=== PATIENT | male | born 1935 | race Caucasian/White ===

== ENCOUNTER 2016-07-16 09:53 | Outpatient (CLI) | payer MEDICARE, OTHER ==
[~2016-07-16] VITALS: Ht 180.3 cm; Wt 130.8 kg
[2016-07-16] MEDS ORDERED: HYDR500C2 PO (10:31)
[2016-07-16] MEDS ORDERED: VALS320T14 PO (13:48)
[2016-07-16] MEDS ORDERED: UBID100C17 PO (13:48)
[2016-07-16] MEDS ORDERED: DILT300C51 PO (13:48)
[2016-07-16] MEDS ORDERED: MAGN400T6 PO (13:48)
[2016-07-16] MEDS ORDERED: SODI325T PO (13:48)
[2016-07-16] MEDS ORDERED: INSU100I13 SQ ×2 (13:48)
[2016-07-16] MEDS ORDERED: TRIA1TAB5 PO (13:48)
[2016-07-16] MEDS ORDERED: ASPI-586 PO (13:48)
[2016-07-16] MEDS ORDERED: FERR324T7 PO (13:48)
[2016-07-16] MEDS ORDERED: FURO20TA4 PO (13:48)
[2016-07-16] MEDS ORDERED: LORA10TA7 PO (13:48)
[2016-07-16] MEDS ORDERED: OMEG1CAP58 PO (13:48)
[2016-07-16] MEDS ORDERED: HYDR-3820 PO (13:48)
[2016-07-16] MEDS ORDERED: CHOL500044 PO (13:48)
[2016-07-16] MEDS ORDERED: METH750T3 PO (13:48)
[2016-07-16] MEDS ORDERED: CYAN250010 PO (13:48)
[2016-07-16] MEDS ORDERED: RANI-515 PO (13:48)
[2016-07-16] MEDS ORDERED: IPRA4AER IH (13:55)
[2016-07-16] MEDS ORDERED: POLY119P5 PO (13:55)
[2016-07-16] MEDS ORDERED: ALBU90AE IH (13:55)
[2016-07-16] MEDS ORDERED: AMLO10TA2 PO (13:55)
[2016-07-16] MEDS ORDERED: LEVO75TA6 PO (13:55)
[2016-07-16] MEDS ORDERED: PRAZ5CAP2 PO (13:55)
[2016-07-16] MEDS ORDERED: TRAZ-28 PO (13:55)
== END 2016-07-16 10:30 | disposition home or self-care (01) ==
LOC: PREOP 09:53
PROVIDERS: ATTEND Orthopaedic Surgery Orthopaedic Surgery of the Spine
DX: Z01.818 Encounter for other preprocedural examination (principal); Z22.322 Carrier or suspected carrier of Methicillin resistant Staphylococcus aureus; Z11.2 Encounter for screening for other bacterial diseases; M48.06 Spinal stenosis, lumbar region
CPT/HCPCS: 87081

== ENCOUNTER 2016-07-23 05:46 | Inpatient (IN) | payer MEDICARE, OTHER ==
[~2016-07-23] VITALS: Ht 180.3 cm; Wt 130.8 kg
[~2016-07-23 05:46] MED LIST: ALBU90AE IH; AMLO10TA2 PO; ASPI-586 PO; CHOL500044 PO; CYAN250010 PO; DILT300C51 PO; FERR324T7 PO; FURO20TA4 PO; HYDR-3820 PO; HYDR500C2 PO; INSU100I13 SQ; IPRA4AER IH; LEVO75TA6 PO; LORA10TA7 PO; MAGN400T6 PO; METH750T3 PO; OMEG1CAP58 PO; POLY119P5 PO; PRAZ5CAP2 PO; RANI-515 PO; SODI325T PO; TRAZ-28 PO; TRIA1TAB5 PO; UBID100C17 PO; VALS320T14 PO
--- OUTSIDE RECORDS SUMMARY | 2016-07-23 05:51 | XMS REPORT | Continuity of Care Document ---
Author Author [facility] Organization [facility] Address Unknown Phone Unavailable Care Team Providers Care Physics Instructor Name Role Phone NO, LOCAL PHYSICIAN PCP Unavailable Insurance Providers Payer Name Policy Number Subscriber Name Relationship [employer] [id number] Cristina Crandall 18 Self / Same As Patient For Life [id number] Cristina Crandall 18 Self / Same As Patient Advance Directives Directive Response Recorded Date/Time Advance Directives Yes 07/16/16 10:03am Health Care Power of Director Plans Yes 07/16/16 10:03am Organ Donor No 07/16/16 10:03am Resuscitation Status Full Code 07/16/16 10:03am Problems No problem information available. Medications Current Home Medications Medication Dose Units Route Directions Days/Qty Instructions Start Date Hydroxyurea 500 Mg 500 Mg Oral Bedtime 07/16/16 Triamterene/Hydrochlorothiazid 1 Each 0.5 Tab Oral Daily 07/16/16 Ranitidine Hcl (Ranitidine) 150 Mg 150 Mg Oral Daily@1200, & Hs Valsartan 320 Mg 320 Mg Oral Daily 07/16/16 Magnesium Oxide 400 Mg 400 Mg Oral Daily@1200 07/16/16 Loratadine 10 Mg 10 Mg Oral Bedtime 07/16/16 Diltiazem Hcl 300 Mg 300 Mg Oral Daily 07/16/16 Methocarbamol 750 Mg 750 Mg Oral Twice A Day 07/16/16 Hydrocodone/Acetaminophen 1 Each 1 Each Oral Four Times Daily Aspirin Unknown Strength 81 Mg Oral Daily 07/16/16 Grand [place]-3 Fatty Acids/Fish Oil 1 Each 2,000 Mg Oral Twice A Day take 2 (1 ,000MG) TABS 07/16/16 Ferrous Gluconate 324 Mg 324 Mg Oral Twice A Day 07/16/16 Ubidecarenone Unknown Strength 200 Mg Oral Daily@1200 07/16/16 Cholecalciferol (Vitamin D3) 5,000 Unit 5,000 Unit Oral Daily@1200 07/16/16 Furosemide 20 Mg 20 Mg Oral Daily 07/16/16 Cyanocobalamin (Vitamin B-12) Unknown Strength 1,000 Mcg Oral Daily@1200 07/16/16 Sodium Bicarbonate 325 Mg 325 Mg Oral Daily@1200 07/16/16 Insuln Asp Prt/Insulin Aspart 300 Units/3 Ml 102 Units Sub-Q Daily 07/16/16 Insuln Asp Prt/Insulin Aspart 300 Units/3 Ml 105 Units Sub-Q Bedtime 07/16/16 Albuterol/Ipratropium 4 Gm 1 Puff Inhalation Three Times A Day 07/16 Polyethylene Glycol 3350 119 Gm 17 Gm Oral Every Other Day 07/16/16 Amlodipine Besylate 10 Mg 5 Mg Oral Daily TAKE 1/2 OF 10MG TAB Levothyroxine Sodium 75 Mcg 75 Mcg Oral Daily 07/16/16 Trazodone Hcl 50 Mg 50 Mg Oral Bedtime 07/16/16 Albuterol Sulfate 90 Mcg 1-2 Puff Inhalation Four Times Daily as needed for Shortness Of Breath 07/16/16 Prazosin Hcl 5 Mg 5 Mg Oral Bedtime 07/16/16 Social History Social History Problem Response Recorded Date/Time Alcohol Use Occasionally Uses 07/16/2016 10:06am Recreational Drug Use No 07/16/2016 10:06am Recent Foreign Travel No 07/16/2016 9:58am Recent Infectious Disease Exposure No 07/16/2016 9:58am Smoking Status Former Smoker 07/16/2016 10:02am Recent Hopitalizations No 07/16/2016 10:06am Query Response Start Date Stop Date Smoking Status Former Smoker Hospital Discharge Instructions No hospital discharge instructions. Plan of Care Discharge Date 07/16/16 10:30am Prescriptions See Medication Section Functional Status No functional status results. Allergies, Adverse Reactions, Alerts Allergen Type Severity Reaction Status Last Updated clavulanic acid ([id number]) Allergy Unknown NAUSEA Active 07/16/16 amoxicillin ([id number]) Allergy Unknown NAUSEA Active 07/16/16 Immunizations No immunization records. Vital Signs Acute Vital Signs Vital Response Date/Time Pulse Rate (adult) 64 bpm (60 - 90) 07/16/2016 10:02am O2 Sat by Pulse Oximetry 96 % (88 - 100) 07/16/2016 10:02am Pain Numeric Pain Scale 4 07/16/2016 10:02am Height (Feet) 5 feet 07/16/2016 9:59am Height (Inches) 11.00 inches 07/16/2016 9:59am Height (Calculated Centimeters) 180.538856 cm 07/16/2016 9:59am Weight (Pounds) 288 pounds 07/16/2016 9:59am Weight (Ounces) 5.0 oz 07/16/2016 9:59am Weight (Calculated Grams) 926475.35 gm 07/16/2016 9:59am Weight (Calculated Kilograms) 130.426682 kilograms 07/16/2016 9:59am Calculated BMI 40.2 07/16/2016 9:59am Results No known relevant diagnostic tests, laboratory data and/or discharge summary. Procedures No known history of procedures. Encounters Encounter Location Arrival/Admit Date Discharge/Depart Date Attending Provider Departed Clinic [facility] 07/16/16 9:53am 07/16/16 10: 30am DANIEL GUEVARA MD
[2016-07-23 06:30] VITALS: BP 160/72
[2016-07-23] MEDS ORDERED: FAMOTIDINE 20MG/2ML IV (PEPCID) IV ONE (06:30)
[2016-07-23] MEDS ORDERED: fentaNYL INJECTION 100 MCG/2 ML AMP IV ONE (06:30)
[2016-07-23] MEDS ORDERED: ceFAZolin 2 GM/NS 50 ML IV ONE (06:45)
[2016-07-23] MEDS ORDERED: GENTAMICIN 40 MG/ML 2 ML INJ SDV ONE (06:47)
[2016-07-23] MEDS ORDERED: VANCOMYCIN 1000 MG/VIAL ONE (06:47)
[2016-07-23] MEDS: LACTATED RINGERS 1,000 ML IV PRN ×3 (06:50→10:02)
[2016-07-23] MEDS ORDERED: proPOfol 200 MG/20 ML (DIPRIVAN) VIAL IV ONE (06:56)
[2016-07-23] MEDS ORDERED: LACTATED RINGERS 1,000 ML IV ONE ×3 (06:56→10:46)
[2016-07-23] MEDS ORDERED: SUCCINYLCHOLINE INJ 100 MG/5 ML SYR ONE (06:56)
[2016-07-23] MEDS ORDERED: ROCURONIUM 50 MG/5 ML (ZEMURON) VIAL IV ONE (06:56)
[2016-07-23] MEDS ORDERED: SEVOFLURANE (ULTANE) 15 ML INHAL SOLN ONE (06:56)
[2016-07-23] MEDS ORDERED: ONDANSETRON 4 MG/2 ML (SDV) Z0FRAN ONE (06:56)
[2016-07-23] MEDS ORDERED: fentaNYL INJECTION 250 MCG/5 ML AMP ONE (06:56)
[2016-07-23] MEDS ORDERED: LIDOCAINE PF 2% 10 ML (XYLOCAINE) AMP ONE (06:56)
[2016-07-23] MEDS ORDERED: DEXMEDETOMIDINE PRE MIX IV ONE (07:00)
[2016-07-23] MEDS ORDERED: CLINDAMYCIN 900 MG/50 ML IVPB 50 ML IV ONE ×2 (07:09→07:15)
[2016-07-23] MEDS ORDERED: ONDANSETRON 4 MG/2 ML (SDV) Z0FRAN IV PRN (07:15)
[2016-07-23] MEDS ORDERED: MILK OF MAGNESIA 400 MG/5 ML 30 ML UDC PO PRN (07:15)
[2016-07-23] MEDS ORDERED: PROMETHAZINE 25 MG (PHENERGAN) TAB PO PRN (07:15)
[2016-07-23] MEDS ORDERED: PROMETHAZINE 12.5 MG (PHENERGAN) SUPP PR PRN (07:15)
[2016-07-23] MEDS ORDERED: ACETAMINOPHEN 325 MG TABLET/CAPLET (TYLENOL) PO PRN (07:15)
[2016-07-23] MEDS ORDERED: BISACODYL 5 MG (DULCOLAX) TABLET PO PRN (07:15)
[2016-07-23] MEDS ORDERED: GLYCOPYRROLATE 0.2 MG/ML (ROBINUL) 2 ML VIAL ONE (09:33)
[2016-07-23] MEDS ORDERED: NEOSTIGMINE (BLOXIVERZ ) 1 MG/1ML 10 ML VIAL ONE (09:33)
[2016-07-23] MEDS ORDERED: BACITRACIN OINTMENT 28 GM TUBE TOP SCH (10:00)
--- NOTE | 2016-07-23 10:00 | Progress Note-Post Operative ---
Post-Operative Progess Note Backfiller Alonso Mcgrath, BEATRIZ Pre-Operative Diagnosis Lumbar Stenosis Post-Operative Diagnosis Same Post-Op Procedure Note Date of Procedure: Jul 23, 2016 Name of Procedure: L3-4 AL/P, with L4-5 PSF, instrumentation and RIght L3-4 facectomy Procedure Note/Findings Stenosis Anesthesia Type GETA Estimated blood loss (mL): 150 DANIEL GUEVARA MD Jul 23, 2016 9:59 am
[2016-07-23] MEDS ORDERED: MEPERIDINE (DEMEROL) INJ 50 MG/ML IVP PRN (10:30)
[2016-07-23] MEDS ORDERED: morphine INJ 10 MG/ML 1ML (SYR OR VIAL) IVP PRN (10:30)
[2016-07-23] MEDS ORDERED: ONDANSETRON 4 MG/2 ML (SDV) Z0FRAN IVP PRN (10:30)
[2016-07-23] MEDS ORDERED: HYDROmorphone (DILAUDID) 2 MG/ML VIAL IVP PRN (10:30)
[2016-07-23 12:00] VITALS: BP 126/75
--- NOTE | 2016-07-23 12:05 | Diagnostic Imaging Report ---
Fluoroscopy. INDICATION: Spinal fusion. Fluoroscopic assistance was provided for Dr. Travis Lewis during his spinal fusion procedure. 35.3 seconds fluoroscopy time was utilized. AP and lateral spot films of the lower lumbar spine were received from the OR. There are bilateral pedicle screws in place at L3, L4, L5, and S1. There are also interbody devices at L3-L4 and L5-S1. The orthopedic hardware appears to be in good position. IMPRESSION: Stable postoperative lumbar spine. Dictated by: Dictated on workstation # [id number]
--- NOTE | 2016-07-23 12:15 | OPERATIVE REPORT ---
PROCEDURE PHYSICIAN: DANIEL LEWIS DATE OF PROCEDURE: 07/23/2016 PREOPERATIVE DIAGNOSES: 1. Lumbar stenosis. 2. Neural canal and neural foraminal. 3. Lumbar degenerative disease. 4. Lumbar radiculopathy. 5. Previous lumbar fusion. POSTOPERATIVE DIAGNOSES: 1. Lumbar stenosis. 2. Neural canal and neural foraminal. 3. Lumbar degenerative disease. 4. Lumbar radiculopathy. 5. Previous lumbar fusion. PROCEDURE PERFORMED: 1. L3-L4 anterolateral transpsoas interbody fusion via TLIF approach. 2. L3-L4 interbody cage instrumentation without intraorbital internal fixation. 3. L3-L4 posterior spinal fusion. 4. L4-L5 posterior spinal fusion. 5. Removal of nonsegmental posterior spinal instrumentation. 6. L3-S1 posterior segmental pedicle screw instrumentation. 7. Right L3-L4 facetectomy and foraminotomy. 8. Autograph for spine surgery, local. 9. Allograft for spine surgery, morselized. DATE AND TIME OF SURGERY: Please see anesthesia record. SURGEON: Dr. Lewis. SOFTWARE APPLICATIONS ARCHITECT: CRISTOBAL Stafford. ROLE OF EMERGENCY ROOM CLERK: Aid in retraction of the procedure, suction around neural elements, aid in implantation, instrumentation and wound closure IMPLANTS USED: 1. Medtronic Legacy posterior spinal instrumentation. 2. Medtronic Clydesdale peek cage. 3. Medtronic infuse and Orthoblend bone graft. ANESTHESIA: General endotracheal. ESTIMATED BLOOD LOSS: 150 mL. IV FLUIDS: Please see anesthesia record. ANTIBIOTICS: Ancef. COMPLICATIONS: None. INDICATION FOR PROCEDURE: Mr. Crandall, 81-year-old male with progressively intolerable severe right leg pain, previous fusion breakdown above, failure to conservative therapy, desires operative treatment. DESCRIPTION OF PROCEDURE: The patient was taken to the preoperative holding area and brought back to the operating suite. After adequate induction of general anesthetic, preoperative antibiotics, he was turned prone lateral decubitus position, left side up. Standard transpsoas approach with neural monitoring was carried out to the 3 to 4 level without difficulty. Once the appropriate level was confirmed, shadow line retractor was placed. After the 3 to 4 disk was prepped, trial spacers utilized and a 14 tall, 22 wide, 55 long cage filled with infuse and allograft bone was impacted in position with good fit achieved. Retractor was removed, hemostasis assured, patient was turned prone on Herminio table. After closing the wound, careful padding to all extremities, sterilely prep and drape of the posterior lumbar spine. Previous incision was opened and carried slightly proximally full exposure of the 3 to 4 and 4 to 5 levels. Previous hardware was removed and a complete facetectomy, foraminotomy 3 to 4 on the right, decompression 3 to 4 level and then bilateral L3 and 4 screws were placed. Checked on imaging and with neural monitoring and then L3 to S1 instrumentation was placed. Final tightening was performed. High speed bur was used to corticate the posterior elements at 3 to 4 and 4 to 5 and then a combination of autograft and allograft bone was packed in the posterior lateral gutter for the fusion portion of the procedure. The wound was irrigated, closed in layers. The patient transferred to the recovery room in stable condition having tolerated the procedure well with stable spinal monitoring. Job ID: [id number] Dictated Date: 07/23/2016 10:04:58 Cable Installer Repairer Helper Date: 07/23/2016 11:50:32 / merlene
[2016-07-23] MEDS: HYDROcodone/APAP 5 MG/325 MG (LORTAB) TAB PO PRN ×2 (12:18→20:37)
--- NOTE | 2016-07-23 12:45 | Consultation-Hospitalist ---
HPI History of Present Illness: HPI/Chief Complaint CC: Lumbar stenosis surgery: L3-4 AL/P, with L4-5 PSF, instrumentation and RIght L3-[address] Lewis HPI: This is an 81yoWM clinic patient of [facility] w/h/o HTN, SHANTELL , CRI Stage III, and CAD managed by Dr Aponte, and thrombocytosis who presents to Room 408 after an uncomplicated lumbar spine surgery by Dr Lewis. I explained my role in medical management following his postoperative course. currently he reports his pain as 8 out of 10 just given hydrocodone but he balbir become tolerant to that medication so I will confer with Dr. Lewis regarding any changes to that. Denies any CP or SOB. I reviewed his home medication list and reviewed all of the specialty doctors that he sees which includes cardiology , nephrology, oncology and endocrinology. 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) Alcohol Use: Occasionally Uses Recreational Drug Use: No Smoking Status: Former Smoker Physical Abuse Screen: No Sexual Abuse: No Recent Foreign Travel: No Contact w/other who traveled: No Recent Hopitalizations: No Recent Infectious Disease Expo: No Immunizations Up To Date Date of Pneumonia Vaccine: Feb 14, 2015 Date of Influenza Vaccine: Feb 15, 2016 Seasonal Allergies Seasonal Allergies: Yes Surgeries HX Surgeries: Yes Surgeries: Orthopedic Respiratory Hx Respiratory Disorders: Yes Respiratory Disorders: COPD, Sleep Apnea Cardiovascular Hx Cardiovascular Disorders: Yes Cardiac Disorders: Coronary Artery Disease, High Cholesterol, Hypertension Neurological Hx Neurological Disorders: Yes Neurological Disorders: Neuropathy Genitourinary Hx Genitourinary Disorders: Yes Genitourinary Disorders: Benign Prostatic Hyperpl, Renal Failure Gastrointestinal Hx Gastrointestinal Disorders: Yes Gastrointestinal Disorders: Gastroesophageal Reflux, Chronic Constipation Musculoskeletal Hx Musculoskeletal Disorders: Yes Musculoskeletal Disorders: Arthritis, Chronic Back Pain Endocrine Hx Endocrine Disorders: No HEENT HEENT Disorders: Cataract Cancer Cancer: Skin, Melanoma Family Medical History Family Hx: Alcoholism 19 FATHER 19 MOTHER Cardiovascular disease 19 FATHER G8 BROTHER Hypertension 19 FATHER G8 BROTHER Myocardial infarction 19 FATHER G8 BROTHER Respiratory disorder 19 FATHER Review of Systems Constitutional: see HPI EENTM: no symptoms reported Respiratory: no symptoms reported Cardiovascular: no symptoms reported Gastrointestinal: no symptoms reported Genitourinary: no symptoms reported Musculoskeletal: back pain Skin: no symptoms reported Psychiatric/Neurological: No Symptoms Reported All Other Systems Reviewed Negative Unless Noted: Yes Physical Exam Physical Exam Vital Signs Vital Sign - Last 12Hours 07/23/16 06:30 Temp 98.0 Pulse 70 Resp 18 B/P 160/72 Pulse Ox 96 O2 Delivery Room Air Capillary Refill : General Appearance: No Apparent Distress WD/WN Chronically ill Obese Eyes: Bilateral Eye Normal Inspection, Bilateral Eye PERRL HEENT: PERRL/EOMI Normal ENT Inspection Pharynx Normal Neck: Full Range of Motion Normal Inspection Non Tender Supple Carotid Bruit Respiratory: Chest Non Tender Lungs Clear No Accessory Muscle Use No Respiratory Distress Decreased Breath Sounds Cardiovascular: Regular Rate, Rhythm No Edema No Gallop No JVD No Murmur Normal Peripheral Pulses Gastrointestinal: Normal Bowel Sounds No Organomegaly No Pulsatile Mass Non Tender Soft Back: Decreased Range of Motion Extremity: Normal Capillary Refill Normal Inspection Normal Range of Motion Non Tender No Calf Tenderness No Pedal Edema Neurologic/Psychiatric: Alert Oriented x3 No Motor/Sensory Deficits Normal Mood/Affect Skin: Normal Color Warm/Dry Lymphatic: No Adenopathy Assessment/Plan Admission Diagnosis Assessment: Status post lumbar spine surgery uncomplicated CAD previous stents placed by Dr. Aponte Chronic renal insufficiency stage III managed by nephrology Thrombocytosis on hydroxyurea usual platelet count 725,000 Hypertension Obstructive sleep apnea on CPAP hyperlipidemia Assessment and Plan Plan Obstructive sleep apnea treatment Oxygen supplementation as needed Pain medication Monitor labs Monitor bowel function SCD's Clinical Quality Measures DVT/VTE Risk/Contraindication: Risk Factor Score Per Nursin RFS Level Per Nursing on Admit: 4+=Very High ANAI ADAMS DO Jul 23, 2016 12:45
[2016-07-23] MEDS: NS IV 1000 ML 1,000 ML IV SCH (12:58)
[2016-07-23] MEDS: morphine INJ 10 MG/ML 1ML (SYR OR VIAL) IVP PRN ×3 (13:06→18:29)
[2016-07-23] MEDS ORDERED: NFVALS90T PO (14:18)
[2016-07-23] MEDS: CLINDAMYCIN 900 MG/50 ML IVPB 50 ML IV SCH ×2 (14:22→21:34)
[2016-07-23] MEDS: inSUlin ASPART (NovoLOG) 1 UNIT/0.01 ML (CHARGE PER UNIT) SC SCH ×3 (14:28→21:00)
[2016-07-23 16:12] VITALS: BP 174/72
[2016-07-23 20:10] VITALS: BP 166/71
[2016-07-23] MEDS: FAMOTIDINE 20 MG (PEPCID) TABLET PO SCH (20:37)
[2016-07-24] VITALS: BP 162/80
[2016-07-24] MEDS: HYDROcodone/APAP 5 MG/325 MG (LORTAB) TAB PO PRN ×4 (01:23→16:14)
[2016-07-24] MEDS: NS IV 1000 ML 1,000 ML IV SCH (01:23)
[2016-07-24 04:00] VITALS: BP 169/68
[2016-07-24] MEDS: CLINDAMYCIN 900 MG/50 ML IVPB 50 ML IV SCH (05:43)
[2016-07-24] MEDS: MULTIVIT W/MINERALS TAB (THERAGRAN M) PO SCH (05:43)
[2016-07-24] MEDS: inSUlin ASPART (NovoLOG) 1 UNIT/0.01 ML (CHARGE PER UNIT) SC SCH ×4 (06:00→21:16)
[2016-07-24 06:13] LABS: RED BLOOD COUNT 3.5 10^6/uL (4.35-5.85); RED CELL DISTRIBUTION WIDTH 15.2 % (10.0-14.5); WHITE BLOOD COUNT 11.6 10^3/uL (4.3-11.0)
[2016-07-24 06:59] LABS: ALBUMIN 3.4 G/DL (3.2-4.5); BILIRUBIN,TOTAL 0.5 MG/DL (0.1-1.0); CALCIUM 8.4 MG/DL (8.5-10.1); CREATININE SERUM 1.78 MG/DL (0.60-1.30); POTASSIUM 4.6 MMOL/L (3.6-5.0); TOTAL PROTEIN 6.2 G/DL (6.4-8.2)
[2016-07-24 08:18] VITALS: BP 187/79
[2016-07-24] MEDS: FAMOTIDINE 20 MG (PEPCID) TABLET PO SCH (09:24)
[2016-07-24] MEDS ORDERED: POLYETHYLENE GLYCOL 17 GM (MIRALAX) PACK PO NR (09:30)
[2016-07-24] MEDS ORDERED: POLYETHYLENE GLYCOL 17 GM (MIRALAX) PACK PO SCH (09:30)
--- NOTE | 2016-07-24 09:37 | Physical Therapy Evaluation ---
PT Evaluation-General Medical Diagnosis Admission Date Jul 23, 2016 at 05:46 Medical Diagnosis: spinal stenosis Onset Date: Jul 23, 2016 Therapy Diagnosis Therapy Diagnosis: generalized weakness and debility Height/Weight Height (Feet): 5 Height (Inches): 11.00 Weight (Pounds): 288 Weight (Ounces): 5.0 Precautions Precautions/Isolations: Standard Precautions Weight Bear Status Weight Bearing Restriction: Weight Bearing/Tolerated Location Restriction: LE Bilateral Referral Physician: Joshua Reason for Referral: Evaluation/Treatment Medical History Pertinent Medical History: Arthritis, CAD, COPD, HTN, Neuropathy, Smoking Additional Medical History SHANTELL; CRI stage III Current History s/p L3-4 ALP; L4-5 PSF Reviewed History: Yes Social History Home: Single Level Current Living Status: Spouse Entry Into Home: Ramp Prior/Core [facility] Prior Level of Function Functional [place] Measure 0=Not Assessed/NA 4=Minimal Assistance 1=Total Assistance 5=Supervision or Setup 2=Maximal Assistance 6=Modified [place] 3=Moderate Assistance 7=Complete [place] Bed Mobility: 6 Transfers (B,C,W/C) (FIM): 6 Gait: 6 patient has 4WW, cane, manual w/c; power scooter PT Evaluation-Current Subjective Patient agrees to PT. Pain Numeric Pain Scale: 8 Location: Right Location Body Site: Hip Pain Description: Ache, Stabbing, Sharp Pt/Family Goals decrease right hip pain Objective Patient Orientation: Normal For Age Problem Solving: Fair Attachments: Oxygen, Drains, Morales Catheter, IV ROM/Strength ROM Lower Extremities bilateral LE WFL Strenght Lower Extremities right knee flexion/extension/4/5; hip flexion 3/5; ankle dorsi/plantarflexion 4/ 5 left knee flexion/extension 4/5; hip flexion 4/5; ankle dorsi/plantarflexion 4/5 Integumentary/Posture Integumentary refer to nursing notes Bowel Incontinence: No Bladder Incontinence: Morales Cath Posture slight hip flexed posture in stand with FWW Neuromuscular (Tone, Coordination, Reflexes) diminished coordination due to neuropathy Sensory Vision: Functional Hearing: Functional Sensation Right Lower Extremit: Impaired Sensation Left Lower Extremity: Impaired Transfers Functional [place] Measure 0=Not Assessed/NA 4=Minimal Assistance 1=Total Assistance 5=Supervision or Setup 2=Maximal Assistance 6=Modified [place] 3=Moderate Assistance 7=Complete [place] Transfers (B, C, W/C) (FIM): 3 Scootin Rollin Supine to/from Sit: 3 Sit to/from Stand: 3 Gait Mode of Locomotion: Walk Anticipated Mode of Locomotion: Walk Gait (FIM): 1 Distance (FIM): 1=up to 49 ft Distance: 5' Gait Level of Assist: 3 Gait Persons Needed: 1 Gait Assistive Device: FWW Comments/Gait Description SBA x 1 for safety; patient is slightly unsteady with initial gait pattern Balance Sitting Static: Normal Sitting Dynamic: Normal Standing Static: Fair Standing Dynamic: Fair Assessment/Needs 81 y.o. male, will benefit from skilled PT to address functional strength and mobility to improve current LOF and to safely return to home with spouse at maximum LOF. Patient has been debilitated by pain for several years. Rehab Potential: Fair Post Rehab Potential-Barriers: age; uncontrolled pain PT Retirement Goals Marketing Specialist Goals PT Retirement Goals Time Frame: Jul 31, 2016 Transfers (B,C,W/C) (FIM): 6 Gait (FIM): 2 Gait distance (FIM): 3=685-60 ft Distance: 100' Gait Level of Assist: 5 Gait Assistive Device: FWW PT Plan Problem List Problem List: Activity Tolerance, Functional Strength, Safety, Balance, Gait, Transfer, Bed Mobility Treatment/Plan Treatment Plan: Continue Plan of Care Treatment Plan: Bed Mobility, Education, Functional Activity Miguelina, Functional Strength, Gait, Safety, Therapeutic Exercise, Transfers Treatment Duration: Jul 31, 2016 # of days/week 6 Visits Per Week: 11 Pt/Family Agrees w/Plan: Yes Safety Risks/Education Patient Education: Transfer Techniques Teaching Recipient: Patient, Family Teaching Methods: Demonstration, Discussion Response to Teaching: Verbalize Understanding, Return Demonstration Discharge Recommendations Therapy D/C Recommendations: Home w/ Family Support, Physical Therapy Home Care Time/GCodes Time In: 830 Time Out: 855 Total Billed Treatment Time: 25 Total Billed Treatment 1 visit EVMod 25 min VIKY MARADIAGA PT Jul 24, 2016 09:37
[2016-07-24] MEDS: MAGNESIUM OXIDE (MAG-OX)400 MG TAB PO SCH (10:05)
[2016-07-24] MEDS: amLODIPine 5 MG (NORVASC) TAB PO SCH (10:05)
[2016-07-24] MEDS: SODIUM BICARBONATE 650 MG TABLET (NON-FORMULARY) PO SCH (10:05)
--- NOTE | 2016-07-24 10:51 | Progress Note-Hospitalist ---
Progress Note HPI/CC on Admission CC: Lumbar stenosis surgery: L3-4 AL/P, with L4-5 PSF, instrumentation and RIght L3-[address] Lewis HPI: This is an 81yoWM clinic patient of [facility] w/h/o HTN, SHANTELL , CRI Stage III, and CAD managed by Dr Aponte, and thrombocytosis who presents to Room 408 after an uncomplicated lumbar spine surgery by Dr Lewis. I explained my role in medical management following his postoperative course. currently he reports his pain as 8 out of 10 just given hydrocodone but he balbir become tolerant to that medication so I will confer with Dr. Lewis regarding any changes to that. Denies any CP or SOB. I reviewed his home medication list and reviewed all of the specialty doctors that he sees which includes cardiology , nephrology, oncology and endocrinology. Progress Notes/Assess & Plan Date Seen 07/24/16 Admission Dx/Process Assessment: Status post lumbar spine surgery uncomplicated CAD previous stents placed by Dr. Aponte Chronic renal insufficiency stage III managed by nephrology Thrombocytosis on hydroxyurea usual platelet count 725,000 Hypertension Obstructive sleep apnea on CPAP hyperlipidemia Diagonsis/Assessment & Plan Chart Review: No fever Vitals stable except BP very elevated at 187/79 WBC 11.6 Hgb 11.2 Platelets 613k Creat 1.78 Glucose 149 Patient Interview: Pt states that he has severe pain in his right leg and back. Pt rates pain at a 10. Pt asks about increased pain meds. Pt uses Methocarbamol at home. Pt is not optimistic about his physical recovery. Pt has not seen Dr. Lewis yet today. Dr. Adams informs pt that BP is high, and he will receive meds to control this. Physical exam stable. Pt has not had a BM but has not eaten and is not concerned. Pt has been discussing a week of recovery rehab in [place]. No fever, vital signs stable except for elevated blood pressure Improved and up in chair at bedside Regular rate and rhythm, clear to auscultation bilaterally No edema Laboratory Tests 07/24/16 05:25 Assessment: Status post lumbar spine surgery uncomplicated POD #1 CAD previous stents placed by Dr. Aponte Chronic renal insufficiency stage III managed by nephrology 1.78 today Thrombocytosis on hydroxyurea usual platelet count 725,000 now 613k Hypertension Obstructive sleep apnea on CPAP hyperlipidemia Plan: DC catheter Heplock IVF SW consult Consult with Dr. Lewis regarding pain medicine and plans for rehab facility. Restart home meds Miralax Norvasc 5mg now due to elevated BP Duoneb treatments Obstructive sleep apnea treatment Oxygen supplementation as needed Pain medication Monitor labs Monitor bowel function SCD's Scribed by Mak Andrews under the direct supervision of Dr. Adams. ANAI ADAMS DO Jul 24, 2016 10:50
[2016-07-24] MEDS: RT-ALBUTEROL/IPRATROPIUM 3 ML (DUONEB) VIAL INH SCH ×3 (11:03→19:45)
[2016-07-24] MEDS: morphine INJ 10 MG/ML 1ML (SYR OR VIAL) IVP PRN (11:28)
[2016-07-24] MEDS: CYANOCOBALAMIN 500 MCG TAB (VITAMIN B-12) PO SCH (11:28)
--- NOTE | 2016-07-24 11:35 | Anesthesia-General Post-Op ---
General Patient Condition Mental Status/LOC: Same as Preop Cardiovascular: Satisfactory Nausea/Vomiting: Absent Respiratory: Satisfactory Pain: Controlled Complications: Absent Post Op Complications Complications None Follow Up Care/Instructions Patient Instructions None needed. Anesthesia/Patient Condition Patient Condition Patient is doing well, no complaints, stable vital signs, no apparent adverse anesthesia problems. No complications reported per nursing. JERALD DE SANTIAGO CRNA Jul 24, 2016 11:35
[2016-07-24] MEDS ORDERED: LACTULOSE SYRUP 10GM/15ML (ENULOSE) 30ML UDC PO NR (11:45)
[2016-07-24 12:00] VITALS: BP 147/65
[2016-07-24] MEDS ORDERED: raNItidine (ZANTAC) 150 MG TAB NON-FORMULARY PO SCH (12:00)
--- NOTE | 2016-07-24 13:54 | Occupational Therapy Eval ---
OT Evaluation-General/PLF Medical Diagnosis Admission Date Jul 23, 2016 at 05:46 Medical Diagnosis: spinal stenosis Onset Date: Jul 23, 2016 Therapy Diagnosis Therapy Diagnosis: Impaired self care skills Height/Weight Height (Feet): 5 Height (Inches): 11.00 Weight (Pounds): 288 Weight (Ounces): 5.0 Precautions Precautions/Isolations: Standard Precautions Safety Interventions: None Weight Bear Status Weight Bearing Restriction: Weight Bearing/Tolerated Location Restriction: LE Bilateral Referral Physician: Joshua Medical History Pertinent Medical History: Arthritis, CAD, COPD, GERD, HTN, Neuropathy, Smoking Additional Medical History SHANTELL, CRI Stage III, High cholesterol, BPH, chronic back pain. Current History s/p L3-4 ALP; L4-5 PSF Reviewed History: Yes Social History Home: Single Level Current Living Status: Spouse Entry Into Home: Ramp ADL-Prior Level of Function ADL PLOF Comments Pt states he needed assist to don socks, but was able to complete other ADLs without assistance. DME/Equipment: Bath Bench, Grab Bars, Shower, Tall Toilet, Toilet/Riser DME/Equipment Comments Manual and power w/c, scooter, cane, Walkers. OT Current Status Subjective Pt sitting in chair, agrees to therapy. Pt reports 9/10 back pain. Mental Status/Objective Patient Orientation: Person, Place, Situation Current Upper Extremity ROM Grossly WFL Upper Extremity Coordination Intact Upper Extremity Sensation Pt reports minimal numbness in fingers on right hand secondary to prior injury ADL-Treatment ADL-Current Pt participated in UE assessment while seated. Pt reports feeding self lunch after set up. Pt demonstrated ability to perform sit to stand with moderate assistance. Pt declined further activity secondary to pain. Pt sitting in chair with needs met and spouse present after session. Functional [place] Measure 0=Not Assessed/NA 4=Minimal Assistance 1=Total Assistance 5=Supervision or Setup 2=Maximal Assistance 6=Modified [place] 3=Moderate Assistance 7=Complete IndependenceIRFPAI Quality Coding Scale 6 Independent with activity with or without an assistive device 5 Patient requires set up or clean up by helper. Patient completes activity by themselves 4 Supervision or touching assist (CGA). [place] provide cues , steadying assist 3 The helper provides less than half the effort to complete the activity 2 The helper provides more than half the effort to complete the activity 1 Dependent. The helper does all the effort to complete an activity 7 Patient refused to complete or attempt activity 9 The patient did not perform the activity before the current illness or injury 88 Not attempted due to Medical conditions or safety concerns Eating (FIM): 5 (by report) Education OT Patient Education: Rehab process Teaching Recipient: Patient Teaching Methods: Discussion Response to Teaching: Verbalize Understanding OT Short Term Goals Short Term Goals 1=Demonstrate adherence to instructed precautions during ADL tasks. 2=Patient will verbalize/demonstrate understanding of assistive devices/ modifications for ADL. 3=Patient will improve strength/tolerance for activity to enable patient to perform ADL's. OT Senior Care Goals Mud Logger Goals Time Frame: Aug 07, 2016 Eating (FIM): 6 Grooming(FIM): 6 Upper Body Dressing(FIM): 5 Lower Body Dressing(FIM): 4 Toileting(FIM): 5 Toilet/Commode Transfer(FIM): 6 Additional Goals: 1-Demonstrate ADL Tasks, 2-Verbalize Understanding, 3- ImproveStrength/Miguelina 1=Demonstrate adherence to instructed precautions during ADL tasks. 2=Patient will verbalize/demonstrate understanding of assistive devices/ modifications for ADL. 3=Patient will improve strength/tolerance for activity to enable patient to perform ADL's. OT Education/Plan Problem List/Assessment Assessment: Decreased Activ Tolerance, Decreased UE Strength, Dependent Transfers, Impaired Self-Care Skills Pt to benefit from skilled OT intervention for ADL training, transfers, strengthening, and home safety education to maximize level of function and allow safe discharge plan. Discharge Recommendations Plan/Recommendations: Continue POC Treatment Plan/Plan of Care Treatment,Training & Education: Yes Patient would benefit from OT for education, treatment and training to promote independence in ADL's, mobility, safety and/or upper extremity function for ADL' s. Plan of Care: ADL Retraining, Functional Mobility, UE Funct Exercise/Act Treatment Duration: Aug 07, 2016 # of days/week 5 Visits Per Week: 5 Agreement: Yes Rehab Potential: Fair Time/GCodes Start Time: 13:20 Stop Time: 13:40 Total Time Billed (hr/min): 20 Billed Treatment Time 1 visit, EVShwetha(20minutes) GRETA VASQUEZ OT Jul 24, 2016 13:54
--- NOTE | 2016-07-24 14:25 | Progress Note (SOAP) ---
Subjective Subjective/Events-last exam Right leg pain better when he walks and even walking better already. It is still sore and tender as is his back and he wasn't sleeping well. Objective Exam Vital Signs Date Time Temp Pulse Resp B/P Pulse Ox O2 Delivery O2 Flow Rate FiO2 07/24/16 12:00 98.1 80 20 147/65 94 Room Air 07/24/16 11:07 95 1.00 07/24/16 09:00 Nasal Cannula 2.00 07/24/16 08:18 100.4 87 20 187/79 94 Room Air 07/24/16 07:16 2.00 07/24/16 04:00 99.0 78 20 169/68 95 NIV/CPAP 2.00 07/24/16 00:00 99.2 75 18 162/80 97 NIV/CPAP 07/23/16 20:35 Nasal Cannula 2.00 07/23/16 20:10 98.8 81 20 166/71 95 Room Air 07/23/16 16:12 97.3 76 20 174/72 98 Room Air I & O 07/24/16 07:00 Intake Total 4400 ml Output Total 1950 ml Balance 2450 ml Capillary Refill : General Appearance: No Apparent Distress Respiratory: No Accessory Muscle Use No Respiratory Distress Cardiovascular: Normal Peripheral Pulses Gastrointestinal: soft Extremity: Normal Capillary Refill Neurologic/Psychiatric: Alert Oriented x3 No Motor/Sensory Deficits Results Lab Laboratory Tests 07/23/16 16:00: Glucometer 161H 07/23/16 20:58: Glucometer 125H 07/24/16 05:25: Alanine Aminotransferase (ALT/SGPT) 20, Albumin 3.4, Alkaline Phosphatase 61, Anion Gap 11, Aspartate Amino Transf (AST/SGOT) 25, BUN/Creatinine Ratio 19, Blood Urea Nitrogen 34H, Calcium Level 8.4L, Carbon Dioxide Level 21, Chloride Level 107, Creatinine 1.78H, Estimat Glomerular Filtration Rate 37, Glucose Level 147H, Hematocrit 33L, Hemoglobin 11.2L, Mean Corpuscular Hemoglobin 32, Mean Corpuscular Hemoglobin Concent 34, Mean Corpuscular Volume 95, Mean Platelet Volume 10.0, Platelet Count 613H, Potassium Level 4.6, Red Blood Count 3.50L, Red Cell Distribution Width 15.2H, Sodium Level 139, Total Bilirubin 0.5 , Total Protein 6.2L, White Blood Count 11.6H 07/24/16 06:15: Glucometer 149H 07/24/16 10:58: Glucometer 260H Assessment/Plan Assessment/Plan Assess & Plan/Chief Complaint Lumbar Stenosis Lumbar Radiculopathy Lumbar Fusion status Plan Continue current care Clinical Quality Measures DVT/VTE Risk/Contraindication: Risk Factor Score Per Nursin RFS Level Per Nursing on Admit: 4+=Very High DANIEL GUEVARA MD Jul 24, 2016 2:25 pm
[2016-07-24] MEDS ORDERED: ZOLPIDEM 5 MG (AMBIEN) TAB PO PRN (14:30)
--- NOTE | 2016-07-24 14:30 | Physical Therapy Daily Note ---
PT Daily Note-Current Subjective Patient is reluctant to participate with PT due to anticipating pain. PT encouraged patient to participate and he agrees. Pain Numeric Pain Scale: 3 Location: Lower Location Body Site: Back Pain Description: Ache Mental Status Patient Orientation: Normal For Age Transfers Functional [place] Measure 0=Not Assessed/NA 4=Minimal Assistance 1=Total Assistance 5=Supervision or Setup 2=Maximal Assistance 6=Modified [place] 3=Moderate Assistance 7=Complete IndependenceIRFPAI Quality Coding Scale 6 Independent with activity with or without an assistive device 5 Patient requires set up or clean up by helper. Patient completes activity by themselves 4 Supervision or touching assist (CGA). [place] provide cues , steadying assist 3 The helper provides less than half the effort to complete the activity 2 The helper provides more than half the effort to complete the activity 1 Dependent. The helper does all the effort to complete an activity 7 Patient refused to complete or attempt activity 9 The patient did not perform the activity before the current illness or injury 88 Not attempted due to Medical conditions or safety concerns Transfers (B, C, W/C) (FIM): 4 Scootin Sit to/from Stand: 4 minimal assist for safety with sit to stand from low chair Gait Training Gait (FIM): 3 Distance (FIM): 3=150 ft Distance: 150' Gait Level of Assist: 4 Gait Persons Needed: 1 Gait Assistive Device: FWW extended UE's with FWW use; shuffle gait sequence Exercises Seated Therapy Exercises: Ankle pumps, Long arc quads Seated Reps: 15 Assessment Patient demonstrated exercises he performs independently and PT encouraged him to continue. PT to increase activity as tolerated by patient. PT Chart Writer Goals Mcfp Goals PT Mcfp Goals Time Frame: Jul 31, 2016 Transfers (B,C,W/C) (FIM): 6 Gait (FIM): 2 Gait distance (FIM): 1=214-59 ft Distance: 100' Gait Level of Assist: 5 Gait Assistive Device: FWW PT Plan Treatment/Plan Treatment Plan: Continue Plan of Care Treatment Plan: Bed Mobility, Education, Functional Activity Miguelina, Functional Strength, Gait, Safety, Therapeutic Exercise, Transfers Treatment Duration: Jul 31, 2016 Visits Per Week: 11 Time/GCodes Time In: 1400 Time Out: 1415 Total Billed Treatment Time: 15 Total Billed Treatment 1 visit GT 15 min VIKY MARADIAGA PT Jul 24, 2016 14:30
[2016-07-24 16:00] VITALS: BP 165/61
[2016-07-24] MEDS: OMEGA 3 (FISH OIL) 1000 MG CAP PO SCH (16:14)
[2016-07-24] MEDS: FERROUS SULF 325 MG (IRON) TAB PO SCH (16:14)
[2016-07-24] MEDS ORDERED: PATIENT MAY USE OWN MEDS, ALL MC SCH (17:30)
[2016-07-24 20:00] VITALS: BP 158/64
[2016-07-24] MEDS: LORATADINE (CLARITIN) 10 MG TAB PO SCH (20:08)
[2016-07-24] MEDS: traZODone 50 MG (DESYREL) TAB PO SCH (20:08)
[2016-07-24] MEDS: METHOCARBAMOL 750 MG (ROBAXIN) TAB PO SCH (20:08)
[2016-07-24] MEDS: HYDROXYUREA 500 MG CAP (HYDREA) PO SCH (20:09)
[2016-07-24] MEDS ORDERED: NON-FORMULARY MEDICATION 1 EA EA (Prazosin HCl 5 MG) PO SCH (21:00)
[2016-07-25 00:03] VITALS: BP 161/52
[2016-07-25] MEDS: HYDROcodone/APAP 5 MG/325 MG (LORTAB) TAB PO PRN ×4 (00:54→16:19)
[2016-07-25 04:10] VITALS: BP 166/75
[2016-07-25] MEDS: inSUlin ASPART (NovoLOG) 1 UNIT/0.01 ML (CHARGE PER UNIT) SC SCH ×4 (05:24→21:49)
[2016-07-25] MEDS: OMEGA 3 (FISH OIL) 1000 MG CAP PO SCH ×2 (05:50→16:19)
[2016-07-25] MEDS: FERROUS SULF 325 MG (IRON) TAB PO SCH ×2 (05:50→16:18)
[2016-07-25] MEDS: LEVOTHYROXINE 75 MCG (LEVOTHROID) TABLET PO SCH (05:51)
[2016-07-25] MEDS: MULTIVIT W/MINERALS TAB (THERAGRAN M) PO SCH (05:51)
[2016-07-25 06:08] LABS: BASOPHILS % (AUTO) 0 % (0-10); EOSINOPHILS # (AUTO) 0.1 10^3/uL (0.0-0.3); EOSINOPHILS % (AUTO) 1 % (0-10); LYMPHOCYTES # (AUTO) 1.1 X 10^3 (1.0-4.0); LYMPHOCYTES % (AUTO) 9 % (12-44); MEAN CORPUSCULAR HEMOGLOBIN 32 PG (25-34); MEAN CORPUSCULAR HGB CONC 34 G/DL (32-36); MEAN CORPUSCULAR VOLUME 95 FL (80-99); MEAN PLATELET VOLUME 9.8 FL (7.4-10.4); MONOCYTES # (AUTO) 2.5 X 10^3 (0.0-1.0); MONOCYTES % (AUTO) 21 % (0-12); NEUTROPHILS # (AUTO) 8.1 X 10^3 (1.8-7.8); NEUTROPHILS % (AUTO) 69 % (42-75); PLATELET COUNT 627 10^3/uL (130-400); RED BLOOD COUNT 3.51 10^6/uL (4.35-5.85); RED CELL DISTRIBUTION WIDTH 15.4 % (10.0-14.5); WHITE BLOOD COUNT 11.7 10^3/uL (4.3-11.0)
[2016-07-25 06:31] LABS: ANISOCYTOSIS SLIGHT; BAND NEUTROPHILS 0 %; BASOPHILS % (MANUAL) 0 %; EOSINOPHILS % (MANUAL) 0 %; LYMPHOCYTES % (MANUAL) 12 %; NEUTROPHILS % (MANUAL) 72 %; REACTIVE LYMPHOCYTES 2 %
[2016-07-25 07:04] LABS: ALBUMIN 3.4 G/DL (3.2-4.5); BILIRUBIN,TOTAL 0.4 MG/DL (0.1-1.0); CALCIUM 8.6 MG/DL (8.5-10.1); CREATININE SERUM 1.93 MG/DL (0.60-1.30); TOTAL PROTEIN 6.5 G/DL (6.4-8.2)
[2016-07-25] MEDS: RT-ALBUTEROL/IPRATROPIUM 3 ML (DUONEB) VIAL INH SCH ×3 (07:19→19:13)
--- NOTE | 2016-07-25 07:31 | Progress Note (SOAP) ---
Subjective Subjective/Events-last exam Pt states that he is doing better. He is still sore, but it's improving. He can see a difference with his walking. Objective Exam Vital Signs Date Time Temp Pulse Resp B/P Pulse Ox O2 Delivery O2 Flow Rate FiO2 07/25/16 07:20 94 07/25/16 04:10 99.0 94 22 166/75 95 NIV/CPAP 07/25/16 00:03 98.1 85 22 161/52 96 NIV/CPAP 07/24/16 20:05 NIV/CPAP 07/24/16 20:00 98.4 77 20 158/64 96 Room Air 07/24/16 19:46 90 07/24/16 16:00 98.0 90 24 165/61 97 Room Air 07/24/16 12:00 98.1 80 20 147/65 94 Room Air 07/24/16 11:07 95 1.00 07/24/16 09:00 Nasal Cannula 2.00 07/24/16 08:18 100.4 87 20 187/79 94 Room Air I & O 07/25/16 06:59 Intake Total 2130 ml Output Total 1815 ml Balance 315 ml Capillary Refill : General Appearance: No Apparent Distress Respiratory: No Accessory Muscle Use Extremity: Normal Capillary Refill Normal Range of Motion No Calf Tenderness Neurologic/Psychiatric: Oriented x3 No Motor/Sensory Deficits Skin: Normal Color Results Lab Laboratory Tests 07/24/16 10:58: Glucometer 260H 07/24/16 16:31: Glucometer 179H 07/24/16 21:12: Glucometer 205H 07/25/16 05:14: Glucometer 187H 07/25/16 05:38: Alanine Aminotransferase (ALT/SGPT) 20, Albumin 3.4, Alkaline Phosphatase 58, Anion Gap 10, Anisocytosis SLIGHT, Aspartate Amino Transf (AST/SGOT) 29, BUN/ Creatinine Ratio 19, Band Neutrophils 0, Basophils # (Auto) 0.0, Basophils % ( Manual) 0, Basophils (%) (Auto) 0, Blood Urea Nitrogen 36H, Calcium Level 8.6, Carbon Dioxide Level 23, Chloride Level 104, Creatinine 1.93H, Eosinophils # ( Auto) 0.1, Eosinophils % (Manual) 0, Eosinophils (%) (Auto) 1, Estimat Glomerular Filtration Rate 34, Glucose Level 194H, Hematocrit 33L, Hemoglobin 11.2L, Lymphocytes # (Auto) 1.1, Lymphocytes % (Manual) 12, Lymphocytes (%) ( Auto) 9L, Mean Corpuscular Hemoglobin 32, Mean Corpuscular Hemoglobin Concent 34 , Mean Corpuscular Volume 95, Mean Platelet Volume 9.8, Monocytes # (Auto) 2.5H , Monocytes % (Manual) 14, Monocytes (%) (Auto) 21H, Neutrophils # (Auto) 8.1H, Neutrophils % (Manual) 72, Neutrophils (%) (Auto) 69, Platelet Count 627H, Potassium Level 4.0, Reactive Lymphocytes 2, Red Blood Count 3.51L, Red Cell Distribution Width 15.4H, Sodium Level 137, Total Bilirubin 0.4, Total Protein 6.5, White Blood Count 11.7H Assessment/Plan Assessment/Plan Assess & Plan/Chief Complaint Lumbar Stenosis Lumbar Radiculopathy Lumbar Fusion status Continue PT and pain control Probably transfer to inpatient rehab tomorrow. Clinical Quality Measures DVT/VTE Risk/Contraindication: Risk Factor Score Per Nursin RFS Level Per Nursing on Admit: 4+=Very High JELLY MUNOZ Jul 25, 2016 07:31
[2016-07-25] MEDS: VALSARTAN 80 MG (DIOVAN) TAB PO SCH (08:14)
[2016-07-25] MEDS: METHOCARBAMOL 750 MG (ROBAXIN) TAB PO SCH ×3 (08:15→21:49)
[2016-07-25] MEDS: FUROSEMIDE 20 MG (LASIX) TAB PO SCH (08:15)
[2016-07-25] MEDS: TRIAMTERENE/HCTZ 75-50 (MAXZIDE,DYAZIDE) TABLET PO SCH (08:15)
[2016-07-25] MEDS: LORATADINE (CLARITIN) 10 MG TAB PO SCH ×3 (08:15→21:49)
[2016-07-25] MEDS: FAMOTIDINE 20 MG (PEPCID) TABLET PO SCH (08:15)
[2016-07-25] MEDS: amLODIPine 5 MG (NORVASC) TAB PO SCH (08:15)
[2016-07-25 08:17] VITALS: BP 169/76
--- NOTE | 2016-07-25 10:53 | Occupational Ther Daily Note ---
OT Current Status-Daily Note Subjective Pt sitting EOB, agrees to treatment. Pt requests to sit up in chair. Mental Status/Objective Functional [place] Measure 0=Not Assessed/NA 4=Minimal Assistance 1=Total Assistance 5=Supervision or Setup 2=Maximal Assistance 6=Modified [place] 3=Moderate Assistance 7=Complete [place] ADL-Treatment Pt sit to stand with minimal assistance with bed raised. RN present and states now has a back brace. Assisted pt to don brace. Transfer to chair with minimal assistance using FWW. Cues for safe descent to chair. Education provided regarding use of adaptive equipment for LE dressing. Pt states understanding of education. Declined to get dressed at this time. Pt states he has a long shoe horn and a long sponge for bathing. Pt states the plan is to go to a rehab in [place] tomorrow. Pt sitting in chair with needs met and spouse present after session. Education OT Patient Education: Modified ADL techniques Teaching Recipient: Patient Teaching Methods: Discussion Response to Teaching: Verbalize Understanding OT Short Term Goals Short Term Goals 1=Demonstrate adherence to instructed precautions during ADL tasks. 2=Patient will verbalize/demonstrate understanding of assistive devices/ modifications for ADL. 3=Patient will improve strength/tolerance for activity to enable patient to perform ADL's. OT Demurrage Man Goals Assisted Goals Time Frame: Aug 07, 2016 Eating (FIM): 6 Grooming(FIM): 6 Upper Body Dressing(FIM): 5 Lower Body Dressing(FIM): 4 Toileting(FIM): 5 Toilet/Commode Transfer(FIM): 6 Additional Goals: 1-Demonstrate ADL Tasks, 2-Verbalize Understanding, 3- ImproveStrength/Miguelina 1=Demonstrate adherence to instructed precautions during ADL tasks. 2=Patient will verbalize/demonstrate understanding of assistive devices/ modifications for ADL. 3=Patient will improve strength/tolerance for activity to enable patient to perform ADL's. OT Education/Plan Problem List/Assessment Pt to benefit from skilled OT intervention for ADL training, transfers, strengthening, and home safety education to maximize level of function and allow safe discharge plan. Discharge Recommendations Plan/Recommendations: Continue POC Treatment Plan/Plan of Care Patient would benefit from OT for education, treatment and training to promote independence in ADL's, mobility, safety and/or upper extremity function for ADL' s. Plan of Care: ADL Retraining, Functional Mobility, UE Funct Exercise/Act Treatment Duration: Aug 07, 2016 Visits Per Week: 5 Agreement: Yes Rehab Potential: Fair Time/GCodes Start Time: 10:22 Stop Time: 10:44 Total Time Billed (hr/min): 22 Billed Treatment Time 1 visit, ADL(22minutes) GRETA VASQUEZ OT Jul 25, 2016 10:53
[2016-07-25] MEDS: CYANOCOBALAMIN 500 MCG TAB (VITAMIN B-12) PO SCH (11:01)
[2016-07-25] MEDS: SODIUM BICARBONATE 650 MG TABLET (NON-FORMULARY) PO SCH (11:01)
[2016-07-25] MEDS: MAGNESIUM OXIDE (MAG-OX)400 MG TAB PO SCH (11:02)
[2016-07-25] MEDS: POLYETHYLENE GLYCOL 17 GM (MIRALAX) PACK PO SCH (11:02)
--- NOTE | 2016-07-25 11:43 | Progress Note-Hospitalist ---
Progress Note HPI/CC on Admission CC: Lumbar stenosis surgery: L3-4 AL/P, with L4-5 PSF, instrumentation and RIght L3-[address] Lewis HPI: This is an 81yoWM clinic patient of [facility] w/h/o HTN, SHANTELL , CRI Stage III, and CAD managed by Dr Aponte, and thrombocytosis who presents to Room 408 after an uncomplicated lumbar spine surgery by Dr Lewis. I explained my role in medical management following his postoperative course. currently he reports his pain as 8 out of 10 just given hydrocodone but he balbir become tolerant to that medication so I will confer with Dr. Lewis regarding any changes to that. Denies any CP or SOB. I reviewed his home medication list and reviewed all of the specialty doctors that he sees which includes cardiology , nephrology, oncology and endocrinology. Progress Notes/Assess & Plan Date Seen 07/25/16 Admission Dx/Process Assessment: Status post lumbar spine surgery uncomplicated CAD previous stents placed by Dr. Aponte Chronic renal insufficiency stage III managed by nephrology Thrombocytosis on hydroxyurea usual platelet count 725,000 Hypertension Obstructive sleep apnea on CPAP hyperlipidemia Diagonsis/Assessment & Plan Chart Review: No fever Vitals stable BP still elevated at 169/76 WBC 11.7 Platelets 627k Creat 1.93 Glucose 200 Review: SIMONE is working on placing pt in rehab at [place]. Dr. Adams informs that pt will be stable for [place] tomorrow. Patient Interview: Pt states that his pain is improved today. Pt has not been sleeping well. Pt is receiving breathing treatments. Pt had a BM this morning, and is urinating without complications. Physical exam stable. No fever, vital signs stable except for elevated blood pressure Improved, pleasant, oriented 3 Regular rate and rhythm, clear to auscultation bilaterally No edema Laboratory Tests 07/25/16 05:38 Assessment: Status post lumbar spine surgery uncomplicated POD #2 CAD previous stents placed by Dr. Aponte Chronic renal insufficiency stage III managed by nephrology 1.78 today Thrombocytosis on hydroxyurea usual platelet count 725,000 now 613k Hypertension Obstructive sleep apnea on CPAP hyperlipidemia slow recovery Chronic constipation Plan: Miralax Check labs in AM DC tomorrow to in-pt rehab at [place] Duoneb treatments Obstructive sleep apnea treatment Oxygen supplementation as needed Pain medication Monitor labs Monitor bowel function SCD's Scribed by Mak Andrews under the direct supervision of Dr. Adams. ANAI ADAMS DO Jul 25, 2016 11:43
--- NOTE | 2016-07-25 11:43 | Physical Therapy Daily Note ---
PT Daily Note-Current Subjective Pt had just gotten back to bed per pt & nurse. Pt agrees to Supine EX in bed due to fatigue. Pain Numeric Pain Scale: 4 Location Body Site: Back Pain Description: Ache, Stabbing Comment: Pt reports pain in back & hip with constant ache then stabbing when EX. Mental Status Patient Orientation: Person, Place, Situation Attachments: Other-See Comments (CPAP) Transfers Functional [place] Measure 0=Not Assessed/NA 4=Minimal Assistance 1=Total Assistance 5=Supervision or Setup 2=Maximal Assistance 6=Modified [place] 3=Moderate Assistance 7=Complete IndependenceIRFPAI Quality Coding Scale 6 Independent with activity with or without an assistive device 5 Patient requires set up or clean up by helper. Patient completes activity by themselves 4 Supervision or touching assist (CGA). [place] provide cues , steadying assist 3 The helper provides less than half the effort to complete the activity 2 The helper provides more than half the effort to complete the activity 1 Dependent. The helper does all the effort to complete an activity 7 Patient refused to complete or attempt activity 9 The patient did not perform the activity before the current illness or injury 88 Not attempted due to Medical conditions or safety concerns Exercises Supine Ex: Ankle pumps, Quad Set, Glut sets, Heel Slides, Straight leg raise, Hip abd/add Supine Reps: 20 Treatments Pt completes Supine Ex in bed for tx. Pt is left with CPAP on and all needs met at end of tx. Assessment Current Status: Fair Progress Pt reports tired and only wants Supine Ex until rested a little. Pt completes Ex with AROM although harder for L side due to pain & weakness. PT Gluing Machine Operator Electronic Goals Gluing Machine Operator Electronic Goals PT Group Home Goals Time Frame: Jul 31, 2016 Transfers (B,C,W/C) (FIM): 6 Gait (FIM): 2 Gait distance (FIM): 2=599-01 ft Distance: 100' Gait Level of Assist: 5 Gait Assistive Device: FWW PT Plan Problem List Problem List: Activity Tolerance, Functional Strength, Safety, Balance, Gait, Transfer Treatment/Plan Treatment Plan: Continue Plan of Care Treatment Plan: Bed Mobility, Education, Functional Activity Miguelina, Functional Strength, Gait, Safety, Therapeutic Exercise, Transfers Treatment Duration: Jul 31, 2016 Visits Per Week: 11 Safety Risks/Education Patient Education: Transfer Techniques, Correct Positioning, Safety Issues Teaching Recipient: Patient, Significant Other Teaching Methods: Discussion Response to Teaching: Verbalize Understanding Time/GCodes Time In: 1100 Time Out: 1123 Total Billed Treatment Time: 23 Total Billed Treatment visit, EX X2 (23m) OMAYRA CALVILLO SENIOR DESIGNER/ART DIRECTOR Jul 25, 2016 11:43
[2016-07-25 12:58] VITALS: BP 172/69
[2016-07-25 16:05] VITALS: BP 186/73
--- NOTE | 2016-07-25 16:10 | Physical Therapy Daily Note ---
PT Daily Note-Current Subjective Pt is sitting in recliner upon arrival. Pt reports pain at 2-3/10 at rest but at least a 6/10 with movement including walking. Pt agrees to ambulation for tx when nurse brings a brief. Pain Numeric Pain Scale: 6 Location Body Site: Back Pain Description: Stabbing Comment: Pt has pain in back & hip with movement. Mental Status Patient Orientation: Person, Place, Situation Attachments: Other-See Comments (Back Brace) Transfers Functional [place] Measure 0=Not Assessed/NA 4=Minimal Assistance 1=Total Assistance 5=Supervision or Setup 2=Maximal Assistance 6=Modified [place] 3=Moderate Assistance 7=Complete IndependenceIRFPAI Quality Coding Scale 6 Independent with activity with or without an assistive device 5 Patient requires set up or clean up by helper. Patient completes activity by themselves 4 Supervision or touching assist (CGA). [place] provide cues , steadying assist 3 The helper provides less than half the effort to complete the activity 2 The helper provides more than half the effort to complete the activity 1 Dependent. The helper does all the effort to complete an activity 7 Patient refused to complete or attempt activity 9 The patient did not perform the activity before the current illness or injury 88 Not attempted due to Medical conditions or safety concerns Transfers (B, C, W/C) (FIM): 4 Scootin Sit to/from Stand: 4 Weight Bearing Weight Bearing Restriction: Full Weight Bearing Location Restriction: LE Bilateral Gait Training Gait (FIM): 3 Distance (FIM): 5=089-51 ft Distance: 100' Gait Level of Assist: 4 Gait Persons Needed: 1 Gait Assistive Device: FWW Pt 's gait is slow and antalgic. Pt has trouble with incontinence and has accident during tx even with brief on. Treatments Pt transfers from recliner and toilet at Min A using FWW. Pt ambulates using FWW at CGA. Pt has incontinence accident and returns to restroom to finish. PT assists with pt cleanup before returning to recliner to rest. Pt is left with all needs met at end of tx. Assessment Current Status: Fair Progress Pt reports that he feels more pain today with ambulation then yesterday and has had bouts of incontinence. Pt fatigues easy and needs rest. PT [facility] Goals [facility] Goals PT Test And Turn Up Technician Goals Time Frame: Jul 31, 2016 Transfers (B,C,W/C) (FIM): 6 Gait (FIM): 2 Gait distance (FIM): 5=107-78 ft Distance: 100' Gait Level of Assist: 5 Gait Assistive Device: FWW PT Plan Problem List Problem List: Activity Tolerance, Functional Strength, Safety, Balance, Gait, Transfer Treatment/Plan Treatment Plan: Continue Plan of Care Treatment Plan: Bed Mobility, Education, Functional Activity Miguelina, Functional Strength, Gait, Safety, Therapeutic Exercise, Transfers Treatment Duration: Jul 31, 2016 Visits Per Week: 11 Safety Risks/Education Patient Education: Gait Training, Transfer Techniques, Correct Positioning, Safety Issues Teaching Recipient: Patient Teaching Methods: Discussion Response to Teaching: Verbalize Understanding Time/GCodes Time In: 1500 Time Out: 1525 Total Billed Treatment Time: 25 Total Billed Treatment visit, GT (10m), BEHZAD (15m) OMAYRA CALVILLO PTA Jul 25, 2016 16:09
[2016-07-25 20:00] VITALS: BP 185/79
[2016-07-25] MEDS: traZODone 50 MG (DESYREL) TAB PO SCH ×2 (21:00→21:49)
[2016-07-25] MEDS: HYDROXYUREA 500 MG CAP (HYDREA) PO SCH (21:00)
[2016-07-25] MEDS: PRAZOSIN 2 MG CAPSULE PO SCH ×2 (21:00→21:49)
[2016-07-26] VITALS: BP 171/86
[2016-07-26 04:00] VITALS: BP 178/85
[2016-07-26] MEDS: inSUlin ASPART (NovoLOG) 1 UNIT/0.01 ML (CHARGE PER UNIT) SC SCH ×2 (06:00→10:55)
[2016-07-26] MEDS: RT-ALBUTEROL/IPRATROPIUM 3 ML (DUONEB) VIAL INH SCH (07:09)
[2016-07-26] MEDS: OMEGA 3 (FISH OIL) 1000 MG CAP PO SCH (07:21)
[2016-07-26] MEDS: MULTIVIT W/MINERALS TAB (THERAGRAN M) PO SCH (07:22)
[2016-07-26] MEDS: FERROUS SULF 325 MG (IRON) TAB PO SCH (07:22)
[2016-07-26] MEDS: HYDROcodone/APAP 5 MG/325 MG (LORTAB) TAB PO PRN ×2 (07:22→10:55)
[2016-07-26] MEDS: LEVOTHYROXINE 75 MCG (LEVOTHROID) TABLET PO SCH (07:22)
[2016-07-26 07:47] LABS: BASOPHILS # (AUTO) 0.1 10^3/uL (0.0-0.1); BASOPHILS % (AUTO) 0 % (0-10); EOSINOPHILS # (AUTO) 0.1 10^3/uL (0.0-0.3); EOSINOPHILS % (AUTO) 1 % (0-10); LYMPHOCYTES # (AUTO) 1.9 X 10^3 (1.0-4.0); LYMPHOCYTES % (AUTO) 12 % (12-44); MEAN CORPUSCULAR HEMOGLOBIN 32 PG (25-34); MEAN CORPUSCULAR HGB CONC 34 G/DL (32-36); MEAN CORPUSCULAR VOLUME 94 FL (80-99); MEAN PLATELET VOLUME 10.2 FL (7.4-10.4); MONOCYTES # (AUTO) 2.6 X 10^3 (0.0-1.0); MONOCYTES % (AUTO) 16 % (0-12); NEUTROPHILS # (AUTO) 11.6 X 10^3 (1.8-7.8); NEUTROPHILS % (AUTO) 71 % (42-75); PLATELET COUNT 718 10^3/uL (130-400); RED BLOOD COUNT 3.81 10^6/uL (4.35-5.85); RED CELL DISTRIBUTION WIDTH 15.5 % (10.0-14.5); WHITE BLOOD COUNT 16.3 10^3/uL (4.3-11.0)
[2016-07-26 08:07] LABS: ALBUMIN 3.7 G/DL (3.2-4.5); BILIRUBIN,TOTAL 0.6 MG/DL (0.1-1.0); CALCIUM 9.4 MG/DL (8.5-10.1); CREATININE SERUM 1.82 MG/DL (0.60-1.30); POTASSIUM 3.9 MMOL/L (3.6-5.0); TOTAL PROTEIN 7.1 G/DL (6.4-8.2)
[2016-07-26] MEDS: POLYETHYLENE GLYCOL 17 GM (MIRALAX) PACK PO SCH (08:41)
[2016-07-26] MEDS: VALSARTAN 80 MG (DIOVAN) TAB PO SCH (08:41)
[2016-07-26] MEDS: FUROSEMIDE 20 MG (LASIX) TAB PO SCH (08:42)
[2016-07-26] MEDS: FAMOTIDINE 20 MG (PEPCID) TABLET PO SCH (08:42)
[2016-07-26] MEDS: METHOCARBAMOL 750 MG (ROBAXIN) TAB PO SCH (08:42)
[2016-07-26] MEDS: LORATADINE (CLARITIN) 10 MG TAB PO SCH (08:42)
[2016-07-26] MEDS: amLODIPine 5 MG (NORVASC) TAB PO SCH (08:42)
[2016-07-26] MEDS: TRIAMTERENE/HCTZ 75-50 (MAXZIDE,DYAZIDE) TABLET PO SCH (08:42)
[2016-07-26 08:50] VITALS: BP 150/74
[2016-07-26] MEDS ORDERED: BISACODYL 10 MG SUPP (DULCOLAX) PR NR (09:30)
--- NOTE | 2016-07-26 09:43 | Discharge Summary ---
Diagnosis/Chief Complaint Date of Admission Jul 23, 2016 at 5:46 am Date of Discharge 07/26/16 Discharge Date: Admission Diagnosis Admission Diagnosis Lumbar Stenosis Discharge Diagnosis Lumbar Stenosis Lumbar Radiculopathy Painful Hardware Post Laminectomy Syndrome Reason Hospital Visit 81 y/o male, breakdown above prior fusion, severe leg pain. Discharge Summary Hospital Course Hospital Course Admitted to hospital, above procedure performed and transferred to floor, ready for d/c to rehab. Labs Laboratory Tests 07/23/16 10:28: Glucometer 171H 07/23/16 14:19: Glucometer 147H 07/23/16 16:00: Glucometer 161H 07/23/16 20:58: Glucometer 125H 07/24/16 05:25: Blood Urea Nitrogen 34H, Calcium Level 8.4L, Creatinine 1.78H, Glucose Level 147H, Hematocrit 33L, Hemoglobin 11.2L, Platelet Count 613H, Red Blood Count 3.50L, Red Cell Distribution Width 15.2H, Total Protein 6.2L, White Blood Count 11.6H 07/24/16 06:15: Glucometer 149H 07/24/16 10:58: Glucometer 260H 07/24/16 16:31: Glucometer 179H 07/24/16 21:12: Glucometer 205H 07/25/16 05:14: Glucometer 187H 07/25/16 05:38: Blood Urea Nitrogen 36H, Creatinine 1.93H, Glucose Level 194H, Hematocrit 33L, Hemoglobin 11.2L, Lymphocytes (%) (Auto) 9L, Monocytes # (Auto) 2.5H, Monocytes (%) (Auto) 21H, Neutrophils # (Auto) 8.1H, Platelet Count 627H, Red Blood Count 3.51L, Red Cell Distribution Width 15.4H, White Blood Count 11.7H 07/25/16 10:36: Glucometer 230H 07/25/16 16:03: Glucometer 233H 07/25/16 19:58: Glucometer 216H 07/26/16 06:39: Glucometer 200H 07/26/16 07:38: Blood Urea Nitrogen 34H, Carbon Dioxide Level 20L, Creatinine 1.82H, Glucose Level 249H, Hematocrit 36L, Hemoglobin 12.1L, Monocytes # (Auto) 2.6H, Monocytes (%) (Auto) 16H, Neutrophils # (Auto) 11.6H, Platelet Count 718H, Red Blood Count 3.81L, Red Cell Distribution Width 15.5H, White Blood Count 16.3H Procedures L3-4 DLIF/L3-5 PSF and laminectomy Discharge Physical Examination Allergies: Coded Allergies: amoxicillin (Verified Allergy, Unknown, NAUSEA, 07/16/16) clavulanic acid (Verified Allergy, Unknown, NAUSEA, 07/16/16) Vitals & I&Os Vital Signs Date Time Temp Pulse Resp B/P Pulse Ox O2 Delivery O2 Flow Rate FiO2 07/26/16 08:50 99.2 100 16 150/74 97 NIV/CPAP 07/24/16 11:07 1.00 General Appearance: Alert, Oriented X3 Respiratory: Normal Air Movement Abdominal: Soft Extremities: No Clubbing, No Cyanosis Skin: No Breakdown Neuro: Strength at 5/5 X4 Ext Discharge Home Medications Reviewed and agree with Discharge Medication list on patient's Discharge Instruction sheet Instructions to Patient/Family Please see electonic discharge instructions given to patient. Clinical Quality Measures DVT/VTE Risk/Contraindication: Risk Factor Score Per Nursin RFS Level Per Nursing on Admit: 4+=Very High DANIEL GUEVARA MD Jul 26, 2016 9:43 am
--- NOTE | 2016-07-26 09:47 | Physical Therapy Daily Note ---
PT Daily Note-Current Subjective Patient is up with OT and is just complete. Pain Numeric Pain Scale: 10-Worst Possible Pain Location: Right Location Body Site: Hip Pain Description: Stabbing Comment: uncontrolled pain Appearance abdominal distention Mental Status Patient Orientation: Normal For Age Transfers Functional [place] Measure 0=Not Assessed/NA 4=Minimal Assistance 1=Total Assistance 5=Supervision or Setup 2=Maximal Assistance 6=Modified [place] 3=Moderate Assistance 7=Complete IndependenceIRFPAI Quality Coding Scale 6 Independent with activity with or without an assistive device 5 Patient requires set up or clean up by helper. Patient completes activity by themselves 4 Supervision or touching assist (CGA). [place] provide cues , steadying assist 3 The helper provides less than half the effort to complete the activity 2 The helper provides more than half the effort to complete the activity 1 Dependent. The helper does all the effort to complete an activity 7 Patient refused to complete or attempt activity 9 The patient did not perform the activity before the current illness or injury 88 Not attempted due to Medical conditions or safety concerns Transfers (B, C, W/C) (FIM): 4 Scootin Rollin Supine to/from Sit: 4 Sit to/from Stand: 4 Patient is in more patient on this date requiring more assistance. Gait Training Gait (FIM): 1 Distance (FIM): 1=up to 49 ft Distance: 15' Gait Level of Assist: 4 Gait Persons Needed: 1 Gait Assistive Device: FWW CGA for safety with gait belt. Patient not tolerating back brace due to abdominal distention Assessment Patient returned to supine in bed and declined further exercises/ambulation due to uncontrolled right hip pain. RN notified. Plan dismissal to rehab on this date. PT Longterm Goals Production Administrator Goals PT Longterm Goals Time Frame: Jul 31, 2016 Transfers (B,C,W/C) (FIM): 6 Gait (FIM): 2 Gait distance (FIM): 3=265-33 ft Distance: 100' Gait Level of Assist: 5 Gait Assistive Device: FWW PT Plan Treatment/Plan Treatment Plan: Continue Plan of Care Treatment Plan: Bed Mobility, Education, Functional Activity Miguelina, Functional Strength, Gait, Safety, Therapeutic Exercise, Transfers Treatment Duration: Jul 31, 2016 Visits Per Week: 11 Time/GCodes Time In: 930 Time Out: 940 Total Billed Treatment Time: 10 Total Billed Treatment 1 visit FA 10 min HIREN,VIKY PT Jul 26, 2016 09:47
--- NOTE | 2016-07-26 10:26 | Occupational Ther Daily Note ---
OT Current Status-Daily Note Subjective Pt in bed, agrees to therapy. Pt reports pain in right hip. Pt also reports abdominal distention secondary to not having a bowel movement in last two days. Pt and spouse state plan is to d/c to rehab in [place] today. Mental Status/Objective Functional [place] Measure 0=Not Assessed/NA 4=Minimal Assistance 1=Total Assistance 5=Supervision or Setup 2=Maximal Assistance 6=Modified [place] 3=Moderate Assistance 7=Complete [place] ADL-Treatment Supine to sit with assistance for trunk. Pt declined to dress at this time, states he will wait until later. Pt has questions regarding inpatient rehab. Education provided regarding therapy process and expectations. Pt states understanding of education. Pt sit to stand with minimal assistance with bed raised. Gait to restroom with FWW, slow pace. Stood at sink for grooming tasks. Pt brushed teeth with SBA and increased time. Washed face with SBA. PT arrived to assist pt with mobility and back to bed. Grooming (FIM): 5 Pt moves slowly and requires increased time for all mobility and ADL tasks this am. Skilled cues required for safety during functional tasks. Education OT Patient Education: Rehab process Teaching Recipient: Patient, Family Teaching Methods: Discussion Response to Teaching: Verbalize Understanding OT Short Term Goals Short Term Goals 1=Demonstrate adherence to instructed precautions during ADL tasks. 2=Patient will verbalize/demonstrate understanding of assistive devices/ modifications for ADL. 3=Patient will improve strength/tolerance for activity to enable patient to perform ADL's. OT Penitentiary Goals Computer Tape Librarian Goals Time Frame: Aug 07, 2016 Eating (FIM): 6 Grooming(FIM): 6 Upper Body Dressing(FIM): 5 Lower Body Dressing(FIM): 4 Toileting(FIM): 5 Toilet/Commode Transfer(FIM): 6 Additional Goals: 1-Demonstrate ADL Tasks, 2-Verbalize Understanding, 3- ImproveStrength/Miguelina 1=Demonstrate adherence to instructed precautions during ADL tasks. 2=Patient will verbalize/demonstrate understanding of assistive devices/ modifications for ADL. 3=Patient will improve strength/tolerance for activity to enable patient to perform ADL's. OT Education/Plan Problem List/Assessment Pt to benefit from skilled OT intervention for ADL training, transfers, strengthening, and home safety education to maximize level of function and allow safe discharge plan. Discharge Recommendations Plan/Recommendations: Continue POC Treatment Plan/Plan of Care Patient would benefit from OT for education, treatment and training to promote independence in ADL's, mobility, safety and/or upper extremity function for ADL' s. Plan of Care: ADL Retraining, Functional Mobility, UE Funct Exercise/Act Treatment Duration: Aug 07, 2016 Visits Per Week: 5 Agreement: Yes Rehab Potential: Fair Time/GCodes Start Time: 09:07 Stop Time: 09:30 Total Time Billed (hr/min): 23 Billed Treatment Time 1 visit, ADLx2(23minutes) GRETA VASQUEZ OT Jul 26, 2016 10:25
[2016-07-26] MEDS: SODIUM BICARBONATE 650 MG TABLET (NON-FORMULARY) PO SCH (10:44)
[2016-07-26] MEDS: CYANOCOBALAMIN 500 MCG TAB (VITAMIN B-12) PO SCH (10:44)
[2016-07-26] MEDS: MAGNESIUM OXIDE (MAG-OX)400 MG TAB PO SCH (10:45)
--- NOTE | 2016-07-26 10:58 | Progress Note-Hospitalist ---
Progress Note HPI/CC on Admission CC: Lumbar stenosis surgery: L3-4 AL/P, with L4-5 PSF, instrumentation and RIght L3-[address] Lewis HPI: This is an 81yoWM clinic patient of [facility] w/h/o HTN, SHANTELL , CRI Stage III, and CAD managed by Dr Aponte, and thrombocytosis who presents to Room 408 after an uncomplicated lumbar spine surgery by Dr Lewis. I explained my role in medical management following his postoperative course. currently he reports his pain as 8 out of 10 just given hydrocodone but he balbir become tolerant to that medication so I will confer with Dr. Lewis regarding any changes to that. Denies any CP or SOB. I reviewed his home medication list and reviewed all of the specialty doctors that he sees which includes cardiology , nephrology, oncology and endocrinology. Progress Notes/Assess & Plan Date Seen 07/26/16 Admission Dx/Process Assessment: Status post lumbar spine surgery uncomplicated CAD previous stents placed by Dr. Aponte Chronic renal insufficiency stage III managed by nephrology Thrombocytosis on hydroxyurea usual platelet count 725,000 Hypertension Obstructive sleep apnea on CPAP hyperlipidemia Diagonsis/Assessment & Plan Chart Review: No fever Vitals stable BP 150/74 WBC 16 Hgb 12 Platelets 719k Creat 1.82 Glucose 249 Patient Interview: Pt has not had a BM for the past two days. Pt received Miralax this morning. Pt feels bloated and has abdominal pain. Pt has flatus. Dr. Adams discusses suppository with pt. Physical exam stable. No fever, vital signs stable except for elevated blood pressure Improved, pleasant, oriented 3 Regular rate and rhythm, clear to auscultation bilaterally + BS distended but non-tender No edema Laboratory Tests 07/26/16 07:38 Assessment: Status post lumbar spine surgery uncomplicated POD #3 CAD previous stents placed by Dr. Aponte Chronic renal insufficiency stage III managed by nephrology at baseline today Thrombocytosis on hydroxyurea usual platelet count 725,000 Hypertension Obstructive sleep apnea on CPAP hyperlipidemia Slow recovery Acute on Chronic constipation Leukocytosis of unknown source Plan: Miralax Dulcolax Suppository Soap suds enema Duoneb treatments Obstructive sleep apnea treatment Oxygen supplementation as needed Pain medication Monitor labs Monitor bowel function SCD's DC to [facility] Scribed by Mak Andrews under the direct supervision of Dr. Adams. ANAI ADAMS DO Jul 26, 2016 10:58
== END 2016-07-26 11:05 | DRG 460 ==
LOC: 4TH 05:46 → SURG 05:47 → 4TH 11:20
PROVIDERS: ADMIT Orthopaedic Surgery Orthopaedic Surgery of the Spine; ATTEND Orthopaedic Surgery Orthopaedic Surgery of the Spine
PROC: 0SG1071 Fusion of 2 or more Lumbar Vertebral Joints with Autologous Tissue Substitute, Posterior Approach, Posterior Column, Open Approach (ICD-10-PCS; 2016-07-23)
PROC: 0SP004Z Removal of Internal Fixation Device from Lumbar Vertebral Joint, Open Approach (ICD-10-PCS; 2016-07-23)
PROC: 0SG00AJ Fusion of Lumbar Vertebral Joint with Interbody Fusion Device, Posterior Approach, Anterior Column, Open Approach (ICD-10-PCS; principal; 2016-07-23 07:31)
DX: T84.216A Breakdown (mechanical) of internal fixation device of vertebrae, initial encounter (principal); M48.06 Spinal stenosis, lumbar region; M51.36 Other intervertebral disc degeneration, lumbar region; M99.53 Intervertebral disc stenosis of neural canal of lumbar region; M54.16 Radiculopathy, lumbar region; Z68.41 Body mass index [BMI] 40.0-44.9, adult; E66.9 Obesity, unspecified; I12.9 Hypertensive chronic kidney disease with stage 1 through stage 4 chronic kidney disease, or unspecified chronic kidney disease; N18.3 Chronic kidney disease, stage 3 (moderate); I25.10 Atherosclerotic heart disease of native coronary artery without angina pectoris; J44.9 Chronic obstructive pulmonary disease, unspecified; E11.9 Type 2 diabetes mellitus without complications; G47.33 Obstructive sleep apnea (adult) (pediatric); D47.3 Essential (hemorrhagic) thrombocythemia; K21.9 Gastro-esophageal reflux disease without esophagitis; K59.09 Other constipation; G62.9 Polyneuropathy, unspecified; E03.9 Hypothyroidism, unspecified; E78.5 Hyperlipidemia, unspecified; E78.00 Pure hypercholesterolemia, unspecified; Z95.5 Presence of coronary angioplasty implant and graft; Z98.1 Arthrodesis status; Z85.820 Personal history of malignant melanoma of skin; Z87.891 Personal history of nicotine dependence
CPT/HCPCS: 36415; 80053; 82962; 85007; 85025; 85027; 86850; 86900; 86901; 94640; 94664; 94760

== ENCOUNTER 2017-12-18 11:35 | Outpatient (CLI) | payer MEDICARE, OTHER ==
[~2017-12-18] VITALS: Ht 180.3 cm; Wt 124.9 kg
[~2017-12-18 11:35] MED LIST changes: +NFVALS90T PO; +TRAZ-189 PO; -TRAZ-28 PO; -VALS320T14 PO; +VALS320T15 PO
[2017-12-18] MEDS ORDERED: FEBU80TA PO (11:58)
[2017-12-18] MEDS ORDERED: RUXO10TA PO (11:58)
[2017-12-18] MEDS ORDERED: VIT1CAPS9 PO (11:58)
[2017-12-18] MEDS ORDERED: ATOR40TA70 PO (11:58)
[2017-12-18] MEDS ORDERED: PSEU60TA84 PO (11:58)
[2017-12-18] MEDS ORDERED: CARV12.53 PO (11:58)
[2017-12-18] MEDS ORDERED: DILT300T9 PO (11:58)
[2017-12-18] MEDS ORDERED: DIPH50CA PO (11:58)
[2017-12-18] MEDS ORDERED: FURO40TA4 PO (11:58)
[2017-12-18] MEDS ORDERED: CLOP75TA69 PO (11:58)
[2017-12-18] MEDS ORDERED: DOXA4TAB2 PO (11:58)
[2017-12-18 12:07] VITALS: BP 165/68
[2017-12-18 12:55] LABS: BASOPHILS % (AUTO) 0 % (0-10); EOSINOPHILS # (AUTO) 0.1 10^3/uL (0.0-0.3); EOSINOPHILS % (AUTO) 1 % (0-10); HEMATOCRIT 31 % (40-54); HEMOGLOBIN 10.7 G/DL (13.3-17.7); LYMPHOCYTES # (AUTO) 1.1 X 10^3 (1.0-4.0); LYMPHOCYTES % (AUTO) 20 % (12-44); MEAN CORPUSCULAR HEMOGLOBIN 31 PG (25-34); MEAN CORPUSCULAR HGB CONC 34 G/DL (32-36); MEAN CORPUSCULAR VOLUME 91 FL (80-99); MEAN PLATELET VOLUME 10.8 FL (7.4-10.4); MONOCYTES # (AUTO) 0.9 X 10^3 (0.0-1.0); MONOCYTES % (AUTO) 15 % (0-12); NEUTROPHILS # (AUTO) 3.6 X 10^3 (1.8-7.8); NEUTROPHILS % (AUTO) 63 % (42-75); PLATELET COUNT 282 10^3/uL (130-400); RED BLOOD COUNT 3.41 10^6/uL (4.35-5.85); RED CELL DISTRIBUTION WIDTH 15.6 % (10.0-14.5); WHITE BLOOD COUNT 5.6 10^3/uL (4.3-11.0)
[2017-12-18 13:16] LABS: ALBUMIN 3.9 GM/DL (3.2-4.5); BILIRUBIN,TOTAL 0.3 MG/DL (0.1-1.0); CALCIUM 9.3 MG/DL (8.5-10.1); CREATININE SERUM 1.47 MG/DL (0.60-1.30); POTASSIUM 3.9 MMOL/L (3.6-5.0); TOTAL PROTEIN 6.7 GM/DL (6.4-8.2)
[2017-12-18] MEDS ORDERED: ASPI-983 PO (14:00)
[2017-12-18] MEDS ORDERED: FEBU40TA PO (14:01)
[2017-12-18] MEDS ORDERED: UBID1CAP53 PO (14:01)
[2017-12-18] MEDS ORDERED: DILT300C64 PO (14:01)
[2017-12-19] MEDS ORDERED: TRAZ-190 PO (11:06)
[2017-12-19] MEDS ORDERED: PRAZ5CAP2 PO (11:06)
[2017-12-19] MEDS ORDERED: LORA10TA7 PO (11:06)
[2017-12-19] MEDS ORDERED: NITR0.4T39 SL (11:09)
[2017-12-26] MEDS ORDERED: OXYC-465 PO (07:44)
== END 2017-12-18 15:00 ==
LOC: PREOP 11:35
PROVIDERS: ATTEND Orthopaedic Surgery Orthopaedic Surgery of the Spine
DX: Z01.810 Encounter for preprocedural cardiovascular examination (principal); Z01.812 Encounter for preprocedural laboratory examination; Z11.2 Encounter for screening for other bacterial diseases; M48.061 Spinal stenosis, lumbar region without neurogenic claudication; I10 Essential (primary) hypertension
CPT/HCPCS: 36415; 80053; 85025; 86850; 86900; 86901; 87081; 93005

== ENCOUNTER 2017-12-23 05:45 | Inpatient (IN) | payer MEDICARE, OTHER ==
[~2017-12-23] VITALS: Ht 180.3 cm; Wt 124.9 kg
[~2017-12-23 05:45] MED LIST changes: +ASPI-983 PO; +ATOR40TA70 PO; +CARV12.53 PO; +CLOP75TA69 PO; +DILT300C64 PO; +DILT300T9 PO; +DIPH50CA PO; +DOXA4TAB2 PO; +FEBU40TA PO; +FEBU80TA PO; +FURO40TA4 PO; +NITR0.4T39 SL; +PSEU60TA84 PO; +RUXO10TA PO; +TRAZ-190 PO; +UBID1CAP53 PO; +VIT1CAPS9 PO
[2017-12-23] MEDS ORDERED: LACTATED RINGERS 1,000 ML IV PRN (06:14)
[2017-12-23] MEDS ORDERED: ceFAZolin 2 GM IV Premixed 50 ML IV ONE (06:15)
[2017-12-23] MEDS ORDERED: VANCOMYCIN 1000 MG/VIAL ONE (06:41)
[2017-12-23] MEDS ORDERED: GENTAMICIN 40 MG/ML 2 ML INJ SDV ONE (06:42)
[2017-12-23] MEDS ORDERED: ROCURONIUM 10 MG/ML 5 ML SYRINGE IV ONE (06:49)
[2017-12-23] MEDS ORDERED: SUCCINYLCHOLINE INJ 100 MG/5 ML SYR ONE (06:49)
[2017-12-23] MEDS ORDERED: SEVOFLURANE (ULTANE) 15 ML INHAL SOLN ONE (06:49)
[2017-12-23] MEDS ORDERED: NEOSTIGMINE 1 MG/ML 5 ML SYRINGE ONE (06:49)
[2017-12-23] MEDS ORDERED: GLYCOPYRROLATE 0.2 MG/ML (ROBINUL) 2 ML VIAL ONE (06:49)
[2017-12-23] MEDS ORDERED: DEXMEDETOMIDINE 200 MCG/2 ML (PRECEDEX) VIAL IV ONE ×2 (06:49→08:23)
[2017-12-23] MEDS ORDERED: proPOfol 200 MG/20 ML (DIPRIVAN) VIAL IV ONE (06:49)
[2017-12-23] MEDS ORDERED: LIDOCAINE PF 2% 5 ML (XYLOCAINE) VIAL ONE (06:49)
[2017-12-23] MEDS ORDERED: ONDANSETRON 4 MG/2 ML (SDV) Z0FRAN ONE (06:49)
[2017-12-23] MEDS ORDERED: fentaNYL INJECTION 100 MCG/2 ML AMP ONE ×2 (06:50→07:58)
[2017-12-23] MEDS ORDERED: PROMETHAZINE 25 MG (PHENERGAN) TAB PO PRN (07:15)
[2017-12-23] MEDS ORDERED: ACETAMINOPHEN 325 MG TABLET PO PRN (07:15)
[2017-12-23] MEDS ORDERED: ONDANSETRON 4 MG/2 ML (SDV) Z0FRAN IV PRN (07:15)
[2017-12-23 07:40] VITALS: BP 197/74
[2017-12-23] MEDS ORDERED: TRANEXAMIC ACID 100 MG/ML 10 ML INJECTION IV ONE (08:13)
[2017-12-23] MEDS ORDERED: hydrALAZINE (APESOLINE) 20 MG/ML VIAL ONE (08:54)
--- NOTE | 2017-12-23 09:56 | Progress Note-Post Operative ---
Post-Operative Progess Note Surgeon (s)/Tube Bending Machine Operator (s) Surgeon DANIEL GUEVARA MD Tube Bending Machine Operator: BEATRIZ Stafford Pre-Operative Diagnosis Lumbar Stenosis Post-Operative Diagnosis Same Procedure & Operative Findings Date of Procedure 12/23/17 Procedure Performed/Findings L2-3 AL/P fusion with Lami and hardware revision Anesthesia Type GETA Estimated Blood Loss Estimated blood loss (mL): 100 Specimens/Packing Specimens Removed none DANIEL GUEVARA MD Dec 23, 2017 9:56 am
[2017-12-23] MEDS ORDERED: morphine INJ 10 MG/ML 1ML (SYR OR VIAL) ONE (10:27)
[2017-12-23] MEDS ORDERED: ONDANSETRON 4 MG/2 ML (SDV) Z0FRAN IVP PRN (10:30)
[2017-12-23] MEDS ORDERED: morphine INJ 10 MG/ML 1ML (SYR OR VIAL) IVP PRN (10:30)
[2017-12-23] MEDS ORDERED: HYDROmorphone 1 MG/ML (DILAUDID) 1 ML SYRINGE IV PRN (10:30)
[2017-12-23] MEDS: inSUlin ASPART (NovoLOG) 1 UNIT/0.01 ML (CHARGE PER UNIT) SC SCH ×4 (11:00→22:02)
[2017-12-23 12:00] VITALS: BP 155/70
[2017-12-23] MEDS: morphine INJ 10 MG/ML 1ML (SYR OR VIAL) IVP PRN ×2 (12:11→14:11)
[2017-12-23] MEDS: NS IV 1000 ML 1,000 ML IV SCH ×2 (12:12→18:06)
--- NOTE | 2017-12-23 12:16 | Diagnostic Imaging Report ---
INDICATION: Undergoing lumbar spine surgery. TECHNIQUE: Two intraprocedural images of the lumbar spine at 9:03 AM. CORRELATION STUDY: None. FINDINGS: Fluoroscopy was utilized by Dr. Lewis. Intraprocedure images of the lumbar spine demonstrate extensive posterior lumbar spinal fusion hardware to be present. This includes transpedicular screws and interconnecting rods at what appears to be the L2 through S1 levels. An intervertebral disc spacer device is also present. Lateral fixation hardware at the L2-L3 level. The alignment demonstrates suggestion of slight anterolisthesis of L5 on S1. FLUOROSCOPY TIME: 32 seconds. IMPRESSION: Extensive posterior lumbosacral spinal fusion is being performed. Dictated by: Dictated on workstation # [id number]
[2017-12-23] MEDS: SENNOSIDES 8.6 MG (SENOKOT) TAB PO SCH ×2 (12:18→21:12)
[2017-12-23] MEDS: DOCUSATE SODIUM 100 MG (COLACE) CAP PO SCH ×2 (12:18→21:13)
[2017-12-23] MEDS: HYDROcodone/APAP 10 MG/325 MG (LORTAB) TAB PO PRN (13:29)
[2017-12-23] MEDS: CLINDAMYCIN 900 MG/50 ML IVPB 50 ML IV SCH ×2 (13:36→21:13)
--- NOTE | 2017-12-23 14:15 | History & Physical-Hospitalist ---
History of Present Illness HPI/Chief Complaint Pt is an 82yoCM with a PMH IDDMII, HTN, CKD, COPD, and SHANTELL was admitted for L2- 3 AL/P fusion with laminectomy and hardware revision. I am consulted for medical management. He denies any complaints or concerns at this time. This is his 4th back surgery and he denies any complications following his previous surgeries. He denies any pain. Rn concerned about bradycardia of 50. Patient reports talking his Coreg this morning and denies any symptoms with the bradycardia. Source: patient Exam Limitations: no limitations Date Seen 12/23/17 Time Seen by Provider: 14:22 Attending Physician Travis Lewis MD PCP No,Local Physician Referring Physician Date of Admission Dec 23, 2017 at 5:45 am Home Medications & Allergies Home Medications Reviewed patient Home Medication Reconciliation performed by pharmacy medication reconciliations aviation maintenance technician and/or nursing. Patients Allergies have been reviewed. Allergies Allergies Coded Allergies amoxicillin (Verified Allergy, Unknown, NAUSEA, 12/18/17) clavulanic acid (Verified Allergy, Unknown, NAUSEA, 12/18/17) Past Bjaivvv-Lxexub-Dvfzhs Hx Patient Social History Alcohol Use: Past History Number of Drinks Today: Alcohol Beverage of Choice: Wine Recreational Drug Use: No Smoking Status: Former Smoker Former Smoker, Quit: Jul 16, 1970 Physical Abuse Screen: No Sexual Abuse: No Recent Foreign Travel: No Contact w/other who traveled: No Recent Hopitalizations: No Recent Infectious Disease Expo: No Immunizations Up To Date Pediatric: No Date of Pneumonia Vaccine: Feb 14, 2015 Date of Influenza Vaccine: Feb 15, 2016 Seasonal Allergies Seasonal Allergies: Yes Past Medical History Surgeries: Orthopedic Respiratory: COPD, Sleep Apnea Currently Using CPAP: Yes Cardiac: Coronary Artery Disease, High Cholesterol, Hypertension Neurological: Neuropathy Sexually Transmitted Disease: No HIV/AIDS: No Genitourinary: Benign Prostatic Hyperpl, Renal Failure Gastrointestinal: Gastroesophageal Reflux, Chronic Constipation Musculoskeletal: Arthritis, Chronic Back Pain HEENT: Cataract Loss of Vision: Bilateral Hearing Impairment: Denies Cancer: Skin, Melanoma Did You Recieve Any Treatments: Yes What Type of Treatment Did You: Chemotherapy, Surgical Intervention Psychosocial: PTSD History of Blood Disorders: No Adverse Reaction to Blood Cardona: No (N/A) Family History Alcoholism 19 FATHER 19 MOTHER Cardiovascular disease 19 FATHER G8 BROTHER Hypertension 19 FATHER G8 BROTHER Myocardial infarction 19 FATHER G8 BROTHER Respiratory disorder 19 FATHER Review of Systems Constitutional: no symptoms reported EENTM: no symptoms reported Respiratory: no symptoms reported Cardiovascular: No chest pain, No palpitations Gastrointestinal: no symptoms reported Genitourinary: no symptoms reported Musculoskeletal: back pain (chronic) Skin: no symptoms reported Psychiatric/Neurological: Tingling (pre-existing neuropathy) Physical Exam Physical Exam Vital Signs Vital Signs - First Documented 12/23/17 12/23/17 07:40 15:36 Temp 97.1 Pulse 50 Resp 18 B/P (MAP) 197/74 (115) Pulse Ox 96 O2 Delivery Room Air O2 Flow Rate 0.00 FiO2 21 Capillary Refill : Height, Weight, BMI Height: 5'11.00" Weight: 275lbs. 5.0oz. [age]yo; 38.4 BMI Method: General Appearance: No Apparent Distress, WD/WN HEENT: PERRL/EOMI, Moist Mucous Membranes Neck: Non Tender, Supple Respiratory: Lungs Clear, No Respiratory Distress Cardiovascular: Regular Rate, Rhythm, No Murmur Gastrointestinal: Normal Bowel Sounds, Non Tender, Soft Extremity: Normal Capillary Refill, No Calf Tenderness Neurologic/Psychiatric: Alert, Oriented x3, Normal Mood/Affect Skin: Normal Color, Warm/Dry Results Results/Procedures Labs Patient resulted labs reviewed. Assessment/Plan Admission Diagnosis L2-3 AL/P fusion with laminectomy and hardware revision MARILOU MORRISSEY MD Dec 23, 2017 2:15 pm
--- NOTE | 2017-12-23 14:28 | Consultation-Hospitalist ---
HPI History of Present Illness: HPI/Chief Complaint Pt is an 82yoCM with a PMH IDDMII, HTN, CKD, COPD, and SHANTELL was admitted for L2- 3 AL/P fusion with laminectomy and hardware revision. I am consulted for medical management. He denies any complaints or concerns at this time. This is his 4th back surgery and he denies any complications following his previous surgeries. He denies any pain. Rn concerned about bradycardia of 50. Patient reports talking his Coreg this morning and denies any symptoms with the bradycardia. Date Seen 12/23/17 Attending Physician rTavis Lewis MD PCP No,Local Physician Referring Physician Date of Admission Dec 23, 2017 at 5:45 am Home Medications & Allergies Home Medications Reviewed patient Home Medication Reconciliation performed by pharmacy medication reconciliations dentures lab technician and/or nursing. Patients Allergies have been reviewed. Allergies Allergies Coded Allergies amoxicillin (Verified Allergy, Unknown, NAUSEA, 12/18/17) clavulanic acid (Verified Allergy, Unknown, NAUSEA, 12/18/17) Past Jxrquvj-Hgceup-Adgqdh Hx Past Med/Social Hx: Reviewed Nursing Past Med/Soc Hx Patient Social History Marrital Status: Alcohol Use: Past History Number of Drinks Today: Alcohol Beverage of Choice: Wine Recreational Drug Use: No Smoking Status: Former Smoker Former Smoker, Quit: Jul 16, 1970 Physical Abuse Screen: No Sexual Abuse: No Recent Foreign Travel: No Contact w/other who traveled: No Recent Hopitalizations: No Recent Infectious Disease Expo: No Immunizations Up To Date Pediatric: No Date of Pneumonia Vaccine: Feb 14, 2015 Date of Influenza Vaccine: Feb 15, 2016 Seasonal Allergies Seasonal Allergies: Yes Past Medical History Surgeries: Coronary Stent, Orthopedic Respiratory: COPD, Sleep Apnea Currently Using CPAP: Yes Cardiac: Coronary Artery Disease, High Cholesterol, Hypertension Neurological: Neuropathy Sexually Transmitted Disease: No HIV/AIDS: No Genitourinary: Benign Prostatic Hyperpl, Renal Failure Gastrointestinal: Gastroesophageal Reflux, Chronic Constipation Musculoskeletal: Arthritis, Chronic Back Pain HEENT: Cataract Loss of Vision: Bilateral Hearing Impairment: Denies Cancer: Skin, Melanoma Did You Recieve Any Treatments: Yes What Type of Treatment Did You: Chemotherapy, Surgical Intervention Psychosocial: PTSD History of Blood Disorders: No Adverse Reaction to Blood Cardona: No (N/A) Family History Reviewed Nursing Family Hx Alcoholism 19 FATHER 19 MOTHER Cardiovascular disease 19 FATHER G8 BROTHER Hypertension 19 FATHER G8 BROTHER Myocardial infarction 19 FATHER G8 BROTHER Respiratory disorder 19 FATHER Review of Systems Constitutional: no symptoms reported EENTM: no symptoms reported Respiratory: no symptoms reported Cardiovascular: no symptoms reported Gastrointestinal: no symptoms reported Genitourinary: no symptoms reported Musculoskeletal: back pain Skin: no symptoms reported Psychiatric/Neurological: Denies Headache; Tingling (chronic) Physical Exam Physical Exam Vital Signs Vital Signs - First Documented 12/23/17 12/23/17 07:40 15:36 Temp 97.1 Pulse 50 Resp 18 B/P (MAP) 197/74 (115) Pulse Ox 96 O2 Delivery Room Air O2 Flow Rate 0.00 FiO2 21 Capillary Refill : Height, Weight, BMI Height: 5'11.00" Weight: 275lbs. 5.0oz. 124.656888zb; 38.4 BMI Method: General Appearance: No Apparent Distress, Chronically ill, Obese Neck: Normal Inspection, Supple Respiratory: Lungs Clear, No Accessory Muscle Use, No Respiratory Distress Cardiovascular: Regular Rate, Rhythm, No Murmur Gastrointestinal: Normal Bowel Sounds, Non Tender, Soft Extremity: No Calf Tenderness, No Pedal Edema Neurologic/Psychiatric: Alert, Oriented x3, Normal Mood/Affect Results Results/Procedures Labs Laboratory Tests 12/24/17 06:14 Patient resulted labs reviewed. Assessment/Plan Assessment and Plan Assess & Plan/Chief Complaint L2-3 AL/P fusion with laminectomy and hardware revision. Diagnosis/Problems Diagnosis/Problems (1) Spinal stenosis, lumbar region, with neurogenic claudication Status: Acute Assessment & Plan: POD #[address] Lewis PT/OT Pain management (2) Bradycardia Status: Resolved Assessment & Plan: Asymptomatic Hold cardizem and BB currently Monitor on telemetry (3) Insulin dependent diabetes mellitus Assessment & Plan: Resume home insulin when tolerating PO (4) HTN (hypertension) Status: Chronic Assessment & Plan: Well controlled currently Monitor Qualifiers: Hypertension type: essential hypertension Qualified Codes: I10 - Essential (primary) hypertension (5) SHANTELL (obstructive sleep apnea) Assessment & Plan: Has home CPAP (6) COPD (chronic obstructive pulmonary disease) Status: Chronic Assessment & Plan: MAT protocol No signs of exacerbation Qualifiers: COPD type: unspecified COPD Qualified Codes: J44.9 - Chronic obstructive pulmonary disease, unspecified MARILOU MORRISSEY MD Dec 23, 2017 14:28
[2017-12-23] MEDS ORDERED: LORATADINE (CLARITIN) 10 MG TAB PO PRN (14:30)
[2017-12-23] MEDS ORDERED: PRAZOSIN 1 MG CAPSULE (MINIPRESS) NON-FORMULARY PO PRN (14:30)
[2017-12-23 16:47] VITALS: BP 197/76
--- NOTE | 2017-12-23 16:54 | OPERATIVE REPORT ---
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 PROCEDURES PERFORMED: 1. L2-L3 anterolateral transpsoas interbody fusion via right-sided TLIF approach. 2. L2-L3 interbody cage instrumentation. 3. L2-L3 anterior instrumentation. 4. L2-L3 posterior spinal fusion. 5. L2-L3 laminectomy, bilateral medial facetectomy and foraminotomy. 6. Reinsertion of spinal fixation devices with extension of hardware from L3 up to L2 with repeat instrumentation of L3 to the sacrum. 7. Autograft for spine surgery, local. 8. Allograft for spine for morselized. DATE AND TIME OF SURGERY: Please see anesthesia record. IMPLANTS USED: K2M Larimer cage and lateral plate, Medtronic Legacy posterior spinal instrumentation and WAPAtronic Orthoblend bone graft. SURGEON: Daniel Guevara MD. GUARD ENTRANCE REGISTRAR: CRISTOBAL Stafford. ROLE OF MEDICAL RECORDS SUPERVISOR: Aid in retraction of the procedure, aid in implantation and station closure. ANESTHESIA: General endotracheal. ESTIMATED BLOOD LOSS: 100 mL. IV FLUIDS: Please see anesthesia record. ANTIBIOTICS: Ancef. COMPLICATIONS: None. SPECIMENS: None. INDICATIONS: The patient is an 82-year-old male with previous fusion breakdown above high-grade stenosis with myelographic block and severe pain, weakness, desires operative treatment, after risks, benefits and alternatives to help, elected to proceed with operative management. NEUROMONITORING: Standard intraoperative neuromonitoring carried out by means of real time continuous high quality bidirectional mode, audio and visual communication to both the jewelry technician and surgeon by Dr. Fragoso. SSEPS, EMGs and TOFs were carried out continuously and stable throughout the procedure. DESCRIPTION OF PROCEDURE: The patient was taken to the preoperative holding area and brought back to the operative suite. After adequate induction of general anesthesia, preoperative antibiotics and neuromonitoring, carefully rolled in lateral decubitus position, right side up. Standard transpsoas approach to L2-3 disk space on the right was carried out because of her previous left-sided approach. Once the retractor was docked and neuromonitoring stable, disk was prepped. Trial spacer was utilized and a 12 tall, 22 wide, 51 cage filled with Allograft bone was impacted in position and the lateral plate was placed as well, 40 mm screws were fixated to the L2-L3 levels fixing the plate to the spine. Hemostasis assured. Retractors removed. Neuromonitoring stable and the patient turned prone on Herminio table, careful padding to all extremities, sterilely prepped and draped posterior lumbar spine. Attention was directed to midline. The previous stab incision was opened and carried slightly proximally. The hardware was exposed, two-three level was exposed and then an L2-L3 laminectomy, bilateral medial facetectomy and foraminotomy were carried out. Full and adequate decompression was assured. Significant disk herniation was present as well, which was removed as part of decompression, bipolar cautery, FloSeal, and bone wax were used to aid in hemostasis. The screws were placed into L2 and prior carl was removed and then reinsertion of a longer carl was performed from L2 all the way to the sacrum. Final tightening was performed. High speed bur was used to decorticate posterolaterally and a combination of autograft and allograft bone was packed in the posterolateral gutter at the 2-3 level for the fusion portion of the procedure. Deep drain was placed. The wound was copiously irrigated. Neuromonitoring stable. Wound was closed in layers. The patient transferred to recovery room in stable condition having tolerated the procedure well. Job ID: [id number] DocumentID: [id number] Dictated Date: 12/23/2017 10:00:57 [place] Superintendent Date: 12/23/2017 10:26:37 Dictated By: DANIEL GUEVARA MD [facility]
[2017-12-23] MEDS: RT-ALBUTEROL/IPRATROPIUM 3 ML (DUONEB) VIAL INH SCH (19:58)
[2017-12-23 20:52] VITALS: BP 181/77
[2017-12-23] MEDS: PSEUDOEPHEDRINE HCL 30 MG (SUDAFED) TAB PO SCH (21:12)
[2017-12-23] MEDS: FAMOTIDINE 20 MG (PEPCID) TABLET PO SCH (21:12)
[2017-12-23] MEDS: ATORVASTATIN 40 MG (LIPITOR) TABLET PO SCH (21:13)
[2017-12-23] MEDS: POLYETHYLENE GLYCOL 17 GM (MIRALAX) PACK PO SCH (21:16)
[2017-12-23 23:44] VITALS: BP 165/82
[2017-12-24] MEDS: morphine INJ 10 MG/ML 1ML (SYR OR VIAL) IVP PRN (01:13)
[2017-12-24] MEDS: NS IV 1000 ML 1,000 ML IV SCH ×3 (03:21→22:52)
[2017-12-24 03:45] VITALS: BP 155/80
[2017-12-24] MEDS: CLINDAMYCIN 900 MG/50 ML IVPB 50 ML IV SCH ×2 (05:14→13:13)
[2017-12-24] MEDS: inSUlin ASPART (NovoLOG) 1 UNIT/0.01 ML (CHARGE PER UNIT) SC SCH ×5 (05:47→21:31)
[2017-12-24] MEDS: MULTIVIT W/MINERALS TAB (THERAGRAN M) PO SCH (06:16)
--- NOTE | 2017-12-24 06:25 | Progress Note (SOAP) ---
Subjective Date Seen by Provider: Dec 24, 2017 Time Seen by Provider: 06:23 Subjective/Events-last exam Pain in legs much better, feels good. Objective Exam Vital Signs Date Time Temp Pulse Resp B/P (MAP) Pulse Ox O2 Delivery O2 Flow Rate FiO2 12/24/17 03:45 98.3 74 18 155/80 (105) 95 Room Air 12/24/17 01:00 83 12/23/17 23:44 98.6 78 19 165/82 (109) 96 Room Air 12/23/17 21:00 95 Room Air 0.00 12/23/17 20:52 98.7 65 20 181/77 (111) 95 Room Air 12/23/17 19:58 88 NIV CPAP 12/23/17 19:00 64 12/23/17 16:47 96.5 50 20 197/76 (116) 97 Room Air 12/23/17 15:36 53 94 21 12/23/17 15:36 94 NIV CPAP 0.00 21 12/23/17 12:52 45 12/23/17 12:00 96.0 44 16 155/70 (98) 91 Room Air 12/23/17 07:40 97.1 50 18 197/74 (115) 96 Room Air I & O 12/24/17 07:00 Intake Total 2570 ml Output Total 965 ml Balance 1605 ml Capillary Refill : General Appearance: No Apparent Distress Neck: Supple Respiratory: No Accessory Muscle Use, No Respiratory Distress Cardiovascular: Regular Rate, Rhythm, Normal Peripheral Pulses Gastrointestinal: non tender, soft Extremity: Normal Capillary Refill Neurologic/Psychiatric: Alert, Oriented x3, No Motor/Sensory Deficits Results Lab Laboratory Tests 12/23/17 06:35: Glucometer 179H 12/23/17 10:27: Glucometer 190H 12/23/17 17:33: Glucometer 142H 12/23/17 21:06: Glucometer 199H 12/24/17 05:26: Glucometer 179H 12/24/17 06:14: Assessment/Plan Assessment/Plan Assess & Plan/Chief Complaint Lumbar Stenosis Lumbar Adjacent Segment Degeneration S/P Lumbar AL/P fusion Up with PT Pain control Clinical Quality Measures DVT/VTE Risk/Contraindication: Risk Factor Score Per Nursin RFS Level Per Nursing on Admit: 4+=Very High DANIEL GUEVARA MD Dec 24, 2017 6:25 am
[2017-12-24 06:33] LABS: HEMOGLOBIN 10.2 G/DL (13.3-17.7); MEAN PLATELET VOLUME 10.5 FL (7.4-10.4); RED BLOOD COUNT 3.42 10^6/uL (4.35-5.85); RED CELL DISTRIBUTION WIDTH 16.1 % (10.0-14.5)
[2017-12-24 07:22] LABS: ALBUMIN 3.4 GM/DL (3.2-4.5); BILIRUBIN,TOTAL 0.5 MG/DL (0.1-1.0); CALCIUM 8.6 MG/DL (8.5-10.1); CREATININE SERUM 1.31 MG/DL (0.60-1.30); POTASSIUM 3.9 MMOL/L (3.6-5.0)
[2017-12-24 07:56] VITALS: BP 181/81
[2017-12-24] MEDS: SENNOSIDES 8.6 MG (SENOKOT) TAB PO SCH ×2 (07:56→20:40)
[2017-12-24] MEDS: FUROSEMIDE 40 MG (LASIX) TAB PO SCH (07:56)
[2017-12-24] MEDS: HYDROcodone/APAP 10 MG/325 MG (LORTAB) TAB PO PRN ×2 (07:57→20:40)
[2017-12-24] MEDS: LEVOTHYROXINE 75 MCG (LEVOTHROID) TABLET PO SCH (07:57)
[2017-12-24] MEDS: DOCUSATE SODIUM 100 MG (COLACE) CAP PO SCH ×2 (07:57→20:40)
[2017-12-24] MEDS: FAMOTIDINE 20 MG (PEPCID) TABLET PO SCH ×2 (07:57→20:41)
--- NOTE | 2017-12-24 08:14 | Anesthesia-General Post-Op ---
General Patient Condition Mental Status/LOC: Same as Preop Cardiovascular: Satisfactory Nausea/Vomiting: Absent Respiratory: Satisfactory Pain: Controlled Complications: Absent Post Op Complications Complications None Follow Up Care/Instructions Patient Instructions None needed. Anesthesia/Patient Condition Patient Condition Patient is doing well, no complaints, stable vital signs, no apparent adverse anesthesia problems. No complications reported per nursing. D/C home per [facility] [place] Criteria: Yes MOUNIKA LOUIE CRNA Dec 24, 2017 08:14
--- NOTE | 2017-12-24 09:23 | Progress Note-Hospitalist ---
Subjective HPI/CC On Admission Date Seen by Provider: Dec 24, 2017 Time Seen by Provider: 09:20 Pt is an 82yoCM with a PMH IDDMII, HTN, CKD, COPD, and SHANTELL was admitted for L2- 3 AL/P fusion with laminectomy and hardware revision. I am consulted for medical management. He denies any complaints or concerns at this time. This is his 4th back surgery and he denies any complications following his previous surgeries. He denies any pain. Rn concerned about bradycardia of 50. Patient reports talking his Coreg this morning and denies any symptoms with the bradycardia. Subjective/Events-last exam Pt reports sleeping poorly last night. Denies pain currently but thinks he is going to have pain with transfer and apprehensive about that. Objective Exam Vital Signs Vital Signs Date Time Temp Pulse Resp B/P (MAP) Pulse Ox O2 Delivery O2 Flow Rate FiO2 12/24/17 07:56 99.8 102 18 181/81 (114) 95 Room Air 12/23/17 21:00 0.00 12/23/17 15:36 21 Capillary Refill : General Appearance: No Apparent Distress, WD/WN Respiratory: Lungs Clear, No Respiratory Distress Cardiovascular: Regular Rate, Rhythm, No Murmur Gastrointestinal: Non Tender, Soft Neurologic/Psychiatric: Alert, Oriented x3 Results/Procedures Lab Laboratory Tests 12/24/17 06:14 Patient resulted labs reviewed. Assessment/Plan Assessment and Plan Assess & Plan/Chief Complaint L2-3 AL/P fusion with laminectomy and hardware revision. Diagnosis/Problems Diagnosis/Problems (1) Spinal stenosis, lumbar region, with neurogenic claudication Status: Acute Assessment & Plan: POD #1 Management per Primary PT pain control Lovenox to start tomorrow (2) Insulin dependent diabetes mellitus Assessment & Plan: Hold Novolin as poor intake Discussed with RN- will continue sliding scale and update me on oral intake Consider Levemir this evening if BS remain elevated (3) Bradycardia Status: Resolved Assessment & Plan: Resume coreg and monitor on telemetry (4) HTN (hypertension) Status: Chronic Assessment & Plan: elevated this morning Resume Coreg as bradycardia resolved Qualifiers: Hypertension type: essential hypertension Qualified Codes: I10 - Essential (primary) hypertension (5) SHANTELL (obstructive sleep apnea) Assessment & Plan: CPAP at night (6) COPD (chronic obstructive pulmonary disease) Status: Chronic Assessment & Plan: MAT Protocol No signs of exacerbation Qualifiers: COPD type: unspecified COPD Qualified Codes: J44.9 - Chronic obstructive pulmonary disease, unspecified (7) CAD (coronary artery disease) Status: Chronic Assessment & Plan: Resume ASA today Hold Plavix per surgery recs Qualifiers: Coronary Disease-Associated Artery/Lesion type: [place] artery [place] vs. transplanted heart: [place] heart Associated angina: without angina Qualified Codes: I25.10 - Atherosclerotic heart disease of [place] coronary artery without angina pectoris Clinical Quality Measures DVT/VTE Risk/Contraindication: Risk Factor Score Per Nursin RFS Level Per Nursing on Admit: 4+=Very High MARILOU MORRISSEY MD Dec 24, 2017 9:23 am
[2017-12-24] MEDS: RT-ALBUTEROL/IPRATROPIUM 3 ML (DUONEB) VIAL INH SCH ×2 (09:44→19:10)
[2017-12-24] MEDS ORDERED: ASPIRIN E.C. 81 MG (ECOTRIN) TAB PO ONE ×2 (10:00→10:19)
[2017-12-24] MEDS: CARVEDILOL 6.25 MG (COREG) TAB PO SCH ×2 (10:27→20:40)
[2017-12-24] MEDS ORDERED: PATIENT MAY USE OWN MED,SINGLE MED PO SCH (10:45)
[2017-12-24] MEDS ORDERED: ASPIRIN E.C. 81 MG (ECOTRIN) TAB PO NR (11:23)
--- NOTE | 2017-12-24 11:41 | Physical Therapy Progress Note ---
Therapy Progress Note Patient declined PT this a.m. due to fatigue and he wanted to sleep. Spouse present. 1 ref (1000) VIKY MARADIAGA PT Dec 24, 2017 11:41
[2017-12-24] MEDS ORDERED: PRAZOSIN 5 MG PO PRN (11:45)
--- NOTE | 2017-12-24 13:08 | Diagnostic Imaging Report ---
INDICATION: Postop fusion. COMPARISON: None. FINDINGS: Frontal and lateral radiographic views of the lumbar spine were obtained and demonstrate postsurgical changes of posterior fusion extending from the L2 through S1 levels. Interpedicular screws appear well positioned and well seated. Posterior fusion rods are noted and are intact. Intervertebral disc device is also noted at the L2-L3 level. Intervertebral disc spacers are also present at L3-L4 and L5-S1 and appear appropriately positioned. Static alignment is within normal limits. Vertebral heights are maintained. There is no evidence of acute fracture. Neurostimulator device and surgical drains are noted posteriorly. No unexpected radiopaque foreign bodies are seen. IMPRESSION: 1. Postsurgical changes of the lumbar spine as described above. Dictated by: Dictated on workstation # [id number]
--- NOTE | 2017-12-24 14:09 | Physical Therapy Evaluation ---
PT Evaluation-General Medical Diagnosis Admission Date Dec 23, 2017 at 05:45 Medical Diagnosis: stenosis Onset Date: Dec 23, 2017 Therapy Diagnosis Therapy Diagnosis: debility Height/Weight Height (Feet): 5 Height (Inches): 11.00 Weight (Pounds): 275 Weight (Ounces): 5.0 Precautions Precautions/Isolations: Standard Precautions Weight Bear Status Right Lower Extremity: Right Full Weight Bearing Left Lower Extremity: Left Full Weight Bearing Referral Physician: Joshua Reason for Referral: Evaluation/Treatment Medical History Pertinent Medical History: Arthritis, CAD, COPD, GERD, HTN, Neuropathy, Smoking Additional Medical History multiple back surgeries Current History s/p L2-3 AL/P fusion with Lami and hardware revision Reviewed History: Yes Social History Home: Single Level Current Living Status: Spouse Entry Into Home: Ramp Prior/Core FIM Prior Level of Function Functional [place] Measure 0=Not Assessed/NA 4=Minimal Assistance 1=Total Assistance 5=Supervision or Setup 2=Maximal Assistance 6=Modified [place] 3=Moderate Assistance 7=Complete [place] Bed Mobility: 6 Transfers (B,C,W/C) (FIM): 6 Gait: 6 PT Evaluation-Current Subjective Patient agrees to PT. Pain Numeric Pain Scale: 3 Location: Lower Location Body Site: Back Pain Description: Acute, Chronic Objective Patient Orientation: Normal For Age Problem Solving: Fair Attachments: IV ROM/Strength ROM Lower Extremities bilateral LE WNL Strength Lower Extremities 4/5 grossly bilateral LE Integumentary/Posture Integumentary refer to nursing notes Bowel Incontinence: No Bladder Incontinence: No Posture WFL Neuromuscular (Tone, Coordination, Reflexes) grossly intact Sensory Vision: Functional Hearing: Functional Sensation Right Lower Extremit: Impaired Sensation Left Lower Extremity: Impaired Transfers Functional [place] Measure 0=Not Assessed/NA 4=Minimal Assistance 1=Total Assistance 5=Supervision or Setup 2=Maximal Assistance 6=Modified [place] 3=Moderate Assistance 7=Complete [place] Transfers (B, C, W/C) (FIM): 5 Scootin Rollin Supine to/from Sit: 5 Sit to/from Stand: 5 Gait Mode of Locomotion: Walk Anticipated Mode of Locomotion: Walk Gait (FIM): 5 Distance (FIM): 3=150 ft Distance: 175' Gait Level of Assist: 5 Gait Assistive Device: FWW Comments/Gait Description safe and functional Balance Sitting Static: Normal Sitting Dynamic: Normal Standing Static: Normal Standing Dynamic: Normal Assessment/Needs 82 y.o. male, will be seen short term by skilled PT to address functional mobility to ensure safe return to home with family at maximum LOF. XLarge back brace has been ordered for patient use per nursing. Rehab Potential: Fair PT Short Term Goals Short Term Goals Time Frame: Dec 28, 2017 Transfers (B,C,W/C) (FIM): 6 Gait (FIM): 6 Distance (FIM): 3=150 ft Gait Distance Comment: 200' Gait Level of Assist: 6 Gait Assistive Device: FWW PT Plan Problem List Problem List: Activity Tolerance, Balance Treatment/Plan Treatment Plan: Continue Plan of Care Treatment Plan: Bed Mobility, Education, Functional Activity Miguelina, Functional Strength, Gait, Safety, Therapeutic Exercise, Transfers Treatment Duration: Dec 28, 2017 Frequency: 11 times per week Estimated Hrs Per Day: .5 hour per day Patient and/or Family Agrees t: Yes Safety Risks/Education Patient Education: Safety Issues Teaching Recipient: Patient, Significant Other Teaching Methods: Discussion Response to Teaching: Verbalize Understanding Discharge Recommendations Therapy D/C Recommendations: Home w/ Family Support Time/GCodes Time In: 1235 Time Out: 1257 Total Billed Treatment Time: 22 Total Billed Treatment 1 visit EVModC 22 min VIKY MARADIAGA PT Dec 24, 2017 14:09
--- NOTE | 2017-12-24 15:10 | Occ Therapy Progress Note ---
Therapy Progress Note [id number] Pt has had 3 previous back surgeries and a course of inpatient therapy. He said that he has all the necessary adapted equipment (sock aid, reachers, etc) and still uses it all regularly. He and his do not think he needs occupational therapy. Will DC OT with no skilled needs identified. visit KATI MCDONNELL OT Dec 24, 2017 15:10
[2017-12-24 16:00] VITALS: BP 184/72
[2017-12-24] MEDS: inSUlin Protamine/ASPart 70/30 1 UNIT/0.01 ML DOSE SC SCH (17:18)
[2017-12-24 20:00] VITALS: BP 181/77
[2017-12-24] MEDS: POLYETHYLENE GLYCOL 17 GM (MIRALAX) PACK PO SCH (20:40)
[2017-12-24] MEDS: ATORVASTATIN 40 MG (LIPITOR) TABLET PO SCH (20:40)
[2017-12-24] MEDS: PSEUDOEPHEDRINE HCL 30 MG (SUDAFED) TAB PO SCH (20:41)
[2017-12-24] MEDS: traZODone 100 MG (DESYREL) TAB PO PRN (20:41)
[2017-12-25] VITALS (10 sets, daily range): BP systolic 90–191; BP diastolic 50–78
[2017-12-25] MEDS ORDERED: NS IV 500 ML 500 ML IV ONE (03:30)
[2017-12-25] MEDS ORDERED: NS IV 500 ML 500 ML ONE (03:31)
--- NOTE | 2017-12-25 06:19 | Progress Note (SOAP) ---
Subjective Time Seen by Provider: 06:17 Subjective/Events-last exam Pt resting comfortably, but still has a lot of low back and right side pain. Hurts to move. Objective Exam Vital Signs Date Time Temp Pulse Resp B/P (MAP) Pulse Ox O2 Delivery O2 Flow Rate FiO2 12/25/17 05:02 191/78 (115) 12/25/17 04:04 99.4 75 19 165/72 (103) 92 Room Air 12/25/17 03:02 90/50 (63) 12/25/17 02:08 167/74 (105) 12/25/17 01:00 92 12/25/17 01:00 159/69 (99) 12/25/17 00:07 99.0 74 19 130/75 (93) 94 Room Air 12/24/17 21:00 Room Air 12/24/17 20:00 99.8 77 20 181/77 (111) 96 Room Air 12/24/17 19:02 87 12/24/17 16:00 99.8 57 20 184/72 (109) 97 Room Air 12/24/17 13:00 107 12/24/17 11:01 99.8 86 18 98 Room Air 12/24/17 09:46 96 Room Air 12/24/17 09:00 Room Air 12/24/17 07:56 99.8 102 18 181/81 (114) 95 Room Air 12/24/17 07:00 94 I & O 12/25/17 07:00 Intake Total 970 ml Output Total 805 ml Balance 165 ml Capillary Refill : General Appearance: No Apparent Distress, WD/WN Respiratory: No Accessory Muscle Use Neurologic/Psychiatric: Alert, Oriented x3, No Motor/Sensory Deficits Results Lab Laboratory Tests 12/24/17 10:57: Glucometer 271H 12/24/17 15:43: Glucometer 189H 12/24/17 18:04: Glucometer 155H 12/24/17 21:23: Glucometer 209H Assessment/Plan Assessment/Plan Assess & Plan/Chief Complaint Lumbar Stenosis Lumbar Adjacent Segment Degeneration S/P Lumbar AL/P fusion Change to Percocet 10 Continue PT Clinical Quality Measures DVT/VTE Risk/Contraindication: Risk Factor Score Per Nursin RFS Level Per Nursing on Admit: 4+=Very High JELLY MUNOZ Dec 25, 2017 06:19
[2017-12-25] MEDS: MULTIVIT W/MINERALS TAB (THERAGRAN M) PO SCH (06:38)
[2017-12-25] MEDS: RT-ALBUTEROL/IPRATROPIUM 3 ML (DUONEB) VIAL INH SCH ×2 (07:37→19:53)
[2017-12-25] MEDS: inSUlin Protamine/ASPart 70/30 1 UNIT/0.01 ML DOSE SC SCH ×2 (07:43→16:23)
[2017-12-25] MEDS: ENOXAPARIN 40 MG/0.4 ML (LOVENOX) SYR SC SCH (07:44)
[2017-12-25] MEDS: inSUlin ASPART (NovoLOG) 1 UNIT/0.01 ML (CHARGE PER UNIT) SC SCH ×4 (07:44→21:00)
[2017-12-25] MEDS: oxyCODONE/APAP 10/325MG (PERCOCET 10) TABLET PO PRN ×2 (07:56→19:07)
--- NOTE | 2017-12-25 09:03 | Progress Note-Hospitalist ---
Subjective HPI/CC On Admission Date Seen by Provider: Dec 25, 2017 Time Seen by Provider: 08:59 Pt is an 82yoCM with a PMH IDDMII, HTN, CKD, COPD, and SHANTELL was admitted for L2- 3 AL/P fusion with laminectomy and hardware revision. I am consulted for medical management. He denies any complaints or concerns at this time. This is his 4th back surgery and he denies any complications following his previous surgeries. He denies any pain. Rn concerned about bradycardia of 50. Patient reports talking his Coreg this morning and denies any symptoms with the bradycardia. Subjective/Events-last exam Pt is sleeping in bed with head covered by blankets. at bedside and states that he had a rough night with pain. Patient awakens briefly and denies pain at this time and would like to continue sleeping. Objective Exam Vital Signs Vital Signs Date Time Temp Pulse Resp B/P (MAP) Pulse Ox O2 Delivery O2 Flow Rate FiO2 12/25/17 07:37 94 Room Air 12/25/17 07:00 81 12/25/17 05:02 191/78 (115) 12/25/17 04:04 99.4 19 12/23/17 21:00 0.00 12/23/17 15:36 21 Capillary Refill : General Appearance: No Apparent Distress, WD/WN Respiratory: Lungs Clear, No Respiratory Distress Cardiovascular: Regular Rate, Rhythm, No Murmur Gastrointestinal: Normal Bowel Sounds, Non Tender, Soft Neurologic/Psychiatric: Alert, Oriented x3 Results/Procedures Lab Patient resulted labs reviewed. Assessment/Plan Assessment and Plan Assess & Plan/Chief Complaint L2-3 AL/P fusion with laminectomy and hardware revision. Diagnosis/Problems Diagnosis/Problems (1) Spinal stenosis, lumbar region, with neurogenic claudication Status: Acute Assessment & Plan: POD #2 Management per Primary PT pain control increased to Percocet Lovenox today (2) Insulin dependent diabetes mellitus Assessment & Plan: Hold Novolin as poor intake Discussed with RN- will continue sliding scale and update me on oral intake Consider Levemir this evening if BS remain elevated (3) Bradycardia Status: Resolved Assessment & Plan: Resume coreg as able for BP and monitor on telemetry (4) HTN (hypertension) Status: Chronic Assessment & Plan: elevated this morning again but was hypotensive x1 overnight Resume Coreg when able Qualifiers: Hypertension type: essential hypertension Qualified Codes: I10 - Essential (primary) hypertension (5) SHANTELL (obstructive sleep apnea) Assessment & Plan: CPAP at night (6) COPD (chronic obstructive pulmonary disease) Status: Chronic Assessment & Plan: MAT Protocol No signs of exacerbation Qualifiers: COPD type: unspecified COPD Qualified Codes: J44.9 - Chronic obstructive pulmonary disease, unspecified (7) CAD (coronary artery disease) Status: Chronic Assessment & Plan: Continue ASA Resume Plavix 5 days post op per surgery recs Qualifiers: Coronary Disease-Associated Artery/Lesion type: [place] artery [place] vs. transplanted heart: [place] heart Associated angina: without angina Qualified Codes: I25.10 - Atherosclerotic heart disease of [place] coronary artery without angina pectoris Clinical Quality Measures DVT/VTE Risk/Contraindication: Risk Factor Score Per Nursin RFS Level Per Nursing on Admit: 4+=Very High MARILOU MORRISSEY MD Dec 25, 2017 09:03
[2017-12-25] MEDS: LEVOTHYROXINE 75 MCG (LEVOTHROID) TABLET PO SCH (09:34)
[2017-12-25] MEDS: DOCUSATE SODIUM 100 MG (COLACE) CAP PO SCH ×2 (09:34→21:08)
[2017-12-25] MEDS: SENNOSIDES 8.6 MG (SENOKOT) TAB PO SCH ×2 (09:34→21:08)
[2017-12-25] MEDS: FAMOTIDINE 20 MG (PEPCID) TABLET PO SCH ×2 (09:34→21:08)
[2017-12-25] MEDS: FUROSEMIDE 40 MG (LASIX) TAB PO SCH (09:34)
[2017-12-25] MEDS: ASPIRIN E.C. 81 MG (ECOTRIN) TAB PO SCH (09:41)
[2017-12-25] MEDS: POLYETHYLENE GLYCOL 17 GM (MIRALAX) PACK PO SCH (09:41)
[2017-12-25] MEDS: NS IV 1000 ML 1,000 ML IV SCH ×2 (09:51→19:15)
--- NOTE | 2017-12-25 10:44 | Physical Therapy Daily Note ---
PT Daily Note-Current Subjective Pt just sitting down into recliner upon arrival. Pt agrees to PT. Pain Numeric Pain Scale: 5-Moderate Pain Location: Dorsal Location Body Site: Back Pain Description: Ache Mental Status Patient Orientation: Person, Place, Time, Situation Attachments: Other-See Comments (Lumbar back brace) Transfers Functional [place] Measure 0=Not Assessed/NA 4=Minimal Assistance 1=Total Assistance 5=Supervision or Setup 2=Maximal Assistance 6=Modified [place] 3=Moderate Assistance 7=Complete IndependenceIRFPAI Quality Coding Scale 6 Independent with activity with or without an assistive device 5 Patient requires set up or clean up by helper. Patient completes activity by themselves 4 Supervision or touching assist (CGA). [place] provide cues , steadying assist 3 The helper provides less than half the effort to complete the activity 2 The helper provides more than half the effort to complete the activity 1 Dependent. The helper does all the effort to complete an activity 7 Patient refused to complete or attempt activity 9 The patient did not perform the activity before the current illness or injury 88 Not attempted due to Medical conditions or safety concerns Scootin Sit to/from Stand: 5 Weight Bearing Right Lower Extremity: Right Full Weight Bearing Left Lower Extremity: Left Full Weight Bearing Gait Training Distance (FIM): 3=150 ft Distance: 200' Gait Level of Assist: 5 Gait Persons Needed: 1 Gait Assistive Device: Walker 4 Wheeled Sp brought in 4WW for pt. Pt needs VC to stay closer to 4WW for less pressure on back & safer. Exercises Seated Therapy Exercises: Ankle pumps, Long arc quads, Hip flexion, Kicking activity Seated Reps: 20 Treatments Pt completes Seated Ex in recliner then takes short rest. Pt transfers from recliner to standing at SBA. FLOUR BLENDER assists pt with back brace. Pt ambulates in hallway using 4WW at SBA. Pt returns to rest in recliner at end of walk. Pt doffs back brace and resting with all needs met at end of tx, including call light. Assessment Current Status: Good Progress Pt is improving with strength for transfers and ambulation. PT Short Term Goals Short Term Goals Time Frame: Dec 28, 2017 Transfers (B,C,W/C) (FIM): 6 Gait (FIM): 6 Distance (FIM): 3=150 ft Gait Distance Comment: 200' Gait Level of Assist: 6 Gait Assistive Device: FWW PT Plan Problem List Problem List: Activity Tolerance, Gait Treatment/Plan Treatment Plan: Continue Plan of Care Treatment Plan: Bed Mobility, Education, Functional Activity Miguelina, Functional Strength, Gait, Safety, Therapeutic Exercise, Transfers Treatment Duration: Dec 28, 2017 Frequency: 11 times per week Estimated Hrs Per Day: .5 hour per day Patient and/or Family Agrees t: Yes Safety Risks/Education Patient Education: Gait Training, Transfer Techniques, Correct Positioning, Reviewed Don/Doff Brace, Safety Issues Teaching Recipient: Patient Teaching Methods: Discussion Response to Teaching: Verbalize Understanding Time/GCodes Time In: 1000 Time Out: 1034 Total Billed Treatment Time: 34 Total Billed Treatment 1, GT (15m) & EX (19m) G Codes Necessary: OMAYRA Fonseca FLOUR BLENDER Dec 25, 2017 10:44
--- NOTE | 2017-12-25 14:06 | Physical Therapy Progress Note ---
Therapy Progress Note SEISMOGRAPH SUPERVISOR attempted to see pt at 1305 and pt had just laid down and fallen asleep. Sp reports pt had just walked in the hallway with staff before SEISMOGRAPH SUPERVISOR arrived. SEISMOGRAPH SUPERVISOR told sp would return after next tx to work with pt. SEISMOGRAPH SUPERVISOR returns at 1400, pt & sp are both asleep and unable to keep awake. PT will try back tomorrow for continued tx. Pt had advised SEISMOGRAPH SUPERVISOR that may discharge tomorrow (12/26/17) 1 visit, no tx rendered OMAYRA CALVILLO SEISMOGRAPH SUPERVISOR Dec 25, 2017 14:05
[2017-12-25] MEDS: PSEUDOEPHEDRINE HCL 30 MG (SUDAFED) TAB PO SCH (21:08)
[2017-12-25] MEDS: ATORVASTATIN 40 MG (LIPITOR) TABLET PO SCH (21:08)
[2017-12-25] MEDS: traZODone 100 MG (DESYREL) TAB PO PRN (21:18)
[2017-12-26] VITALS: BP 161/71
[2017-12-26 03:43] VITALS: BP 169/77
[2017-12-26] MEDS: inSUlin ASPART (NovoLOG) 1 UNIT/0.01 ML (CHARGE PER UNIT) SC SCH (05:15)
[2017-12-26] MEDS: NS IV 1000 ML 1,000 ML IV SCH (05:15)
[2017-12-26] MEDS: MULTIVIT W/MINERALS TAB (THERAGRAN M) PO SCH (06:55)
--- NOTE | 2017-12-26 07:39 | Progress Note (SOAP) ---
Subjective Date Seen by Provider: Dec 26, 2017 Time Seen by Provider: 07:37 Subjective/Events-last exam Better, wants to go home, at bedside. Objective Exam Vital Signs Date Time Temp Pulse Resp B/P (MAP) Pulse Ox O2 Delivery O2 Flow Rate FiO2 12/26/17 03:43 98.7 85 20 169/77 (107) 93 Room Air 12/26/17 01:00 75 12/26/17 00:00 99.1 72 22 161/71 (101) 98 Room Air 12/25/17 20:00 94 Room Air 12/25/17 20:00 98.7 86 16 176/78 (110) 95 Room Air 12/25/17 19:54 91 Room Air 12/25/17 19:00 74 12/25/17 16:00 98.9 82 20 175/75 (108) 97 Room Air 12/25/17 13:00 92 12/25/17 12:00 98.7 82 20 161/69 (99) 95 Room Air 12/25/17 09:00 Room Air 12/25/17 08:00 99.5 88 20 161/68 (99) 95 Room Air I & O 12/26/17 07:00 Intake Total 1490 ml Output Total 757 ml Balance 733 ml Capillary Refill : General Appearance: No Apparent Distress Respiratory: No Accessory Muscle Use Cardiovascular: Regular Rate, Rhythm, Normal Peripheral Pulses Gastrointestinal: non tender, soft Extremity: Normal Capillary Refill Neurologic/Psychiatric: Alert, Oriented x3, No Motor/Sensory Deficits Results Lab Laboratory Tests 12/25/17 11:19: Glucometer 186H 12/25/17 16:00: Glucometer 208H 12/25/17 20:58: Glucometer 156H 12/26/17 05:04: Glucometer 141H Assessment/Plan Assessment/Plan Assess & Plan/Chief Complaint Lumbar Stenosis Lumbar Adjacent Segment Degeneration S/P Lumbar AL/P fusion D/C Home, instructions given Clinical Quality Measures DVT/VTE Risk/Contraindication: Risk Factor Score Per Nursin RFS Level Per Nursing on Admit: 4+=Very High DANIEL GUEVARA MD Dec 26, 2017 7:39 am
--- NOTE | 2017-12-26 07:42 | Discharge Summary ---
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 Discharge Summary Hospital Course Hospital Course Admitted, surgery performed, pain controlled, up with PT, drain d/c ready for D/ c Home Labs Laboratory Tests 12/23/17 10:27: Glucometer 190H 12/23/17 17:33: Glucometer 142H 12/23/17 21:06: Glucometer 199H 12/24/17 05:26: Glucometer 179H 12/24/17 06:14: Red Blood Count 3.42L, Hemoglobin 10.2L, Hematocrit 31L, Red Cell Distribution Width 16.1H, Mean Platelet Volume 10.5H, Blood Urea Nitrogen 25H, Creatinine 1.31H, Glucose Level 196H, Total Protein 6.0L 12/24/17 10:57: Glucometer 271H 12/24/17 15:43: Glucometer 189H 12/24/17 18:04: Glucometer 155H 12/24/17 21:23: Glucometer 209H 12/25/17 07:29: Glucometer 174H 12/25/17 11:19: Glucometer 186H 12/25/17 16:00: Glucometer 208H 12/25/17 20:58: Glucometer 156H 12/26/17 05:04: Glucometer 141H Procedures L2-3 AL/P fusion/lami Consultations Internal Medicine Discharge Physical Examination Allergies: Coded Allergies: amoxicillin (Verified Allergy, Unknown, NAUSEA, 12/18/17) clavulanic acid (Verified Allergy, Unknown, NAUSEA, 12/18/17) Vitals & I&Os Vital Signs Date Time Temp Pulse Resp B/P (MAP) Pulse Ox O2 Delivery O2 Flow Rate FiO2 12/26/17 03:43 98.7 85 20 169/77 (107) 93 Room Air 12/23/17 21:00 0.00 12/23/17 15:36 21 General Appearance: Alert, Oriented X3 Respiratory: Normal Air Movement Cardiovascular: Regular Rate Abdominal: Normal Bowel Sounds, Soft Neuro: Normal Gait, Normal Speech, Strength at 5/5 X4 Ext Discharge Home Medications Reviewed and agree with Discharge Medication list on patient's Discharge Instruction sheet Instructions to Patient/Family Please see electronic discharge instructions given to patient. Clinical Quality Measures DVT/VTE Risk/Contraindication: Risk Factor Score Per Nursin RFS Level Per Nursing on Admit: 4+=Very High DANIEL GUEVARA MD Dec 26, 2017 7:42 am
[2017-12-26] MEDS ORDERED: OXYC-465 PO (07:44)
[2017-12-26] MEDS: RT-ALBUTEROL/IPRATROPIUM 3 ML (DUONEB) VIAL INH SCH (07:51)
[2017-12-26 08:00] VITALS: BP 140/72
[2017-12-26] MEDS: inSUlin Protamine/ASPart 70/30 1 UNIT/0.01 ML DOSE SC SCH (08:56)
[2017-12-26] MEDS: ENOXAPARIN 40 MG/0.4 ML (LOVENOX) SYR SC SCH (08:56)
[2017-12-26] MEDS: LEVOTHYROXINE 75 MCG (LEVOTHROID) TABLET PO SCH (08:57)
[2017-12-26] MEDS: FAMOTIDINE 20 MG (PEPCID) TABLET PO SCH (08:57)
[2017-12-26] MEDS: SENNOSIDES 8.6 MG (SENOKOT) TAB PO SCH (08:57)
[2017-12-26] MEDS: FUROSEMIDE 40 MG (LASIX) TAB PO SCH (08:57)
[2017-12-26] MEDS: POLYETHYLENE GLYCOL 17 GM (MIRALAX) PACK PO SCH (08:57)
[2017-12-26] MEDS: ASPIRIN E.C. 81 MG (ECOTRIN) TAB PO SCH (08:57)
[2017-12-26] MEDS: DOCUSATE SODIUM 100 MG (COLACE) CAP PO SCH (08:57)
[2017-12-26 09:35] VITALS: BP 140/72
== END 2017-12-26 09:30 | disposition home or self-care (01) | DRG 454 ==
LOC: 4TH 05:45 → SURG 05:46 → 4TH 11:30
PROVIDERS: ADMIT Orthopaedic Surgery Orthopaedic Surgery of the Spine; ATTEND Orthopaedic Surgery Orthopaedic Surgery of the Spine
PROC: 0SG0071 Fusion of Lumbar Vertebral Joint with Autologous Tissue Substitute, Posterior Approach, Posterior Column, Open Approach (ICD-10-PCS; 2017-12-23)
PROC: 0SP004Z Removal of Internal Fixation Device from Lumbar Vertebral Joint, Open Approach (ICD-10-PCS; 2017-12-23)
PROC: 0SG00AJ Fusion of Lumbar Vertebral Joint with Interbody Fusion Device, Posterior Approach, Anterior Column, Open Approach (ICD-10-PCS; principal; 2017-12-23 07:30)
DX: M48.062 Spinal stenosis, lumbar region with neurogenic claudication (principal); M47.26 Other spondylosis with radiculopathy, lumbar region; M96.1 Postlaminectomy syndrome, not elsewhere classified; T84.216A Breakdown (mechanical) of internal fixation device of vertebrae, initial encounter; M51.16 Intervertebral disc disorders with radiculopathy, lumbar region; D75.81 Myelofibrosis; J44.9 Chronic obstructive pulmonary disease, unspecified; G47.33 Obstructive sleep apnea (adult) (pediatric); I12.9 Hypertensive chronic kidney disease with stage 1 through stage 4 chronic kidney disease, or unspecified chronic kidney disease; N18.3 Chronic kidney disease, stage 3 (moderate); I25.10 Atherosclerotic heart disease of native coronary artery without angina pectoris; E11.42 Type 2 diabetes mellitus with diabetic polyneuropathy; E03.9 Hypothyroidism, unspecified; N40.0 Benign prostatic hyperplasia without lower urinary tract symptoms; K59.09 Other constipation; K21.9 Gastro-esophageal reflux disease without esophagitis; R00.1 Bradycardia, unspecified; J30.2 Other seasonal allergic rhinitis; E78.00 Pure hypercholesterolemia, unspecified; F43.10 Post-traumatic stress disorder, unspecified; Z95.5 Presence of coronary angioplasty implant and graft; Z87.891 Personal history of nicotine dependence; Z92.21 Personal history of antineoplastic chemotherapy; Z85.820 Personal history of malignant melanoma of skin
CPT/HCPCS: 36415; 72100; 80053; 82962; 85027; 94640; 94664; 94760